=== PATIENT | female | born 1960 | race Caucasian/White ===

== ENCOUNTER 2017-01-26 17:52 | Emergency (ER) | payer OTHER ==
[~2017-01-26] VITALS: Ht 170.2 cm; Wt 102.1 kg
[~2017-01-26 17:52] MED LIST: ANAPROX DS1 TAB PO; ASPIRIN LOW DOS81 MG PO; ATIVAN1 MG PO; ATORVASTATIN CA20 MG PO; BUFFERIN LOW DO81 MG PO; CLEOCIN HCL300 MG PO; CONSTULOSE10 GM/15 M PO; CORTEF5 MG PO; Ecotrin PO; FOLIC ACID 1 MG PO; GABAPENTIN100 MG PO; HYDROCORTISONE5 MG PO; K-DUR 20MEQ TA20 MEQ PO; KLOR-CON20 MEQ PO; LACTULOSE10 GM/15 M PO; LIDODERM 5% PAT1 PAT TOP; LIPITOR20 MG PO; MOBIC 15MG15 MG PO; MULTIVITAMIN1 TA1 PO; MULTIVITAMIN1 TAB PO; NEURONTIN100 MG PO; NEURONTIN300 MG PO; OMEPRAZOLE40 MG PO; TRAMADOL50 MG PO; ULTRAM(MONOGRAP50 MG PO; VITAB121000 PO; VITAMIN B-150 MG PO; VITAMIN B1100 MG PO; ZOFRAN 4 MG TABL4 MG PO; [UNRECOGNIZED DRUG - CODE] PO
--- NOTE | 2017-01-26 19:52 | ED GENERAL ADULT ---
History of Present Illness General Chief Complaint: General Adult Stated Complaint: NEEDS DETOX ETOH HAS PAIN IN HIP AND SHOULDER Source: patient, old records Exam Limitations: intoxication Vital Signs & Intake/Output Vital Signs & Intake/Output Vital Signs Date Time Temp Pulse Resp B/P Pulse O2 O2 Flow FiO2 Ox Delivery Rate 01/27 0538 82 20 114/83 01/27 0535 82 20 114/83 96 Room Air 01/27 0259 98.0 87 20 122/60 01/27 0258 98.0 87 20 122/60 96 Room Air 01/26 2345 97.2 81 22 133/70 97 Room Air 01/26 1810 97.1 86 99 129/83 99 Room Air ED Intake and Output 01/27 0000 01/26 1200 Intake Total Output Total Balance Patient 225 lb Weight Allergies Coded Allergies: Penicillins (Mild, RASH 01/14/16) Sulfa (Sulfonamide Antibiotics) (Mild, RASH 01/14/16) amoxicillin (Mild, RASH 01/14/16) latex (Mild, RASH 01/14/16) Reconcile Medications Aspirin (Children's Aspirin) 81 MG TAB 1 TAB PO DAILY HEART (Reported) Atorvastatin (Atorvastatin Calcium) 20 MG TAB 20 MG PO 1700 CHOLESTROL ( Reported) Folic Acid 1 MG TAB 1 MG PO DAILY Supplement Gabapentin (Neurontin) 300 MG CAP 1 CAP PO TID NEUROPATHY (Reported) Hydrocortisone 5 MG TAB 3 TAB PO DAILY AC ADRENAL INSUFFICIENCY (Reported) Hydrocortisone 5 MG TAB 1 TAB PO 1700 ADRENAL INSUFFICIENCY (Reported) Multivitamin (Multiple Vitamins) 1 TAB TAB 1 TAB PO DAILY VITAMIN POTASSIUM CHLORIDE (K-Dur) 20 MEQ TAB 1 TAB PO DAILY SUPPLEMENT (Reported) Thiamine (Vitamin B-1) 50 MG TAB 1 TAB PO DAILY SUPPLEMENT Tramadol HCl (Ultram) 50 MG TAB 1 TAB PO BID PAIN (Reported) Triage Note: C/O PAIN AND SWELLING TO BOTH FEET, BACK. ALSO STATES SHE HAS BEEN DRINKING VODKA FOR 4 DAYS. HAS BEEN TO [facility] FOR BACK PROBLEMS, STATES SHE IS UPSET THAT "THEY WON'T DO SURGERY. HAS HX OF NEUROPATHY. Triage Nurses Notes Reviewed? yes Onset: Abrupt Duration: hour(s): (FEW) Timing: single episode today Injury Environment: home Severity: moderate No Modifying Factors: none Associated Symptoms: CHRONIC PAIN, ALCOHOLISM HPI: 56 year old female presents intoxicated, brougt in by brother. She states she needs to get back to [facility] for her rehab. She has neuropathy and was there for 3 months. After that she was transferred to [facility] where they were unable to do surgery on her. After that she was sent home and then states she started drinking again. No SI/HI. Brother reported to charge nurse he can't take her home because she was too intoxicated to walk on her own. She admits to drinking 1 bottle of vodka today. She states "please get me back into that rehab". (RACQUEL LIU,NATHAN) Past History Travel History Traveled to [place] past 21 day No Medical History Any Pertinent Medical History? see below for history Neurological: peripheral neuropathy, seizure, AVM BRAIN SURGERY- left craniotomy 1994 with resolved right deficit. EENT: NONE Cardiovascular: NONE Respiratory: NONE Gastrointestinal: peptic ulcer disease Hepatic: intermittent abnormal LFTs/EtOH abuse. Renal: NONE Musculoskeletal: chronic back pain, disk herniation (as per MRI), RESTLESS LEG SYNDROME Psychiatric: alcohol dependence, cocaine use. Endocrine: adrenal insufficiency Blood Disorders: NONE Cancer(s): ovarian cancer, "? 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 FATHER (?prostate Ca.). Age 87. Relation not specified for: No pertinent family history Hx Contributory? No (RACQUEL LIU,NATHAN) Review of Systems Review of Systems Constitutional: Denies: chills, fever. EENTM: Reports: no symptoms. Respiratory: Denies: cough. Cardiovascular: Denies: chest pain. GI: Denies: abdominal pain, diarrhea, nausea, vomiting. Genitourinary: Reports: no symptoms. Musculoskeletal: Reports: back pain, muscle pain, muscle stiffness. Denies: neck pain. Skin: Reports: no symptoms. Neurological/Psychological: Reports: depressed. Hematologic/Endocrine: Denies: bruising, bleeding, polyuria, polydipsia. Immunologic/Allergic: Denies: splenectomy. All Other Systems: Reviewed and Negative (NATHAN EDEN MD) Physical Exam Physical Exam General Appearance: well developed/nourished, alert, awake, anxious, mild distress, intoxicated, obese Head: atraumatic, normal appearance Eyes: Bilateral: normal appearance, PERRL, EOMI. Ears, Nose, Throat: normal pharynx, normal ENT inspection Neck: normal inspection, supple, full range of motion Respiratory: normal breath sounds, chest non-tender, no respiratory distress Cardiovascular: regular rate/rhythm Peripheral Pulses: 2+ radial (R), 2+ radial (L) Gastrointestinal: normal bowel sounds, soft, non-tender Extremities: normal inspection, normal range of motion, no edema Neurologic/Psych: no motor/sensory deficits, awake, alert, oriented x 3 Skin: intact, normal color, warm/dry Core Measures ACS in differential dx? No CVA/TIA Diagnosis: No Severe Sepsis Present: No Septic Shock Present: No (NATHAN EDEN MD) Progress Differential Diagnoses I considered the following diagnoses in my evaluation of the patient: [ALCOHOL ABUSE, DRUG ABUSE, NEUROPATHY, CHRONIC BACK PAIN] Plan of Care: Orders Procedure Date/time Status Heart Healthy Diet 01/27 B Active CIWA 01/26 2312 Active LACTIC ACID 01/26 2305 Complete URINE DRUGS OF ABUSE 01/26 2005 Complete MAGNESIUM 01/26 2005 Complete LIPASE 01/26 2005 Complete LACTIC ACID 01/26 2005 Complete ETHANOL 01/26 2005 Complete COMPREHENSIVE METABOLIC PANEL 01/26 2005 Complete CBC WITHOUT DIFFERENTIAL 01/26 2005 Complete Current Medications Sig/Liane Start time Last Medication Dose Stop Time Status Admin Albuterol Sulfate 3 ML ONCE ONE 01/27 0215 CAN (Proventil) 01/27 0216 Laboratory Tests 01/27/17 0130: Lactic Acid 2.0 01/26/17 2255: Urine Opiates Screen < 100.00, Methadone Screen < 40, Barbiturate Screen < 60, Ur Phencyclidine Scrn < 6.00, Amphetamines Screen < 100, U Benzodiazepines Scrn > 800 H, Urine Cocaine Screen > 1000 H, Urine Cannabis Screen < 5.00 01/26/17 2037: Anion Gap 12, Estimated GFR > 60, BUN/Creatinine Ratio 12.0, Glucose 98, Lactic Acid 3.2 H, Calcium 8.7, Magnesium 1.6, Total Bilirubin 0.4, AST 145 H, ALT 85 H, Alkaline Phosphatase 138 H, Total Protein 5.8 L, Albumin 3.3 L, Globulin 2.5, Albumin/Globulin Ratio 1.3, Lipase 112, CBC w Diff NO MAN DIFF REQ, RBC 3.91 L, MCV 98.7, MCH 33.0 H, RDW 16.1 H, MPV 7.6, Gran % 32.4 L, Lymphocytes % 54.8 H, Monocytes % 9.7 H, Eosinophils % 1.7, Basophils % 1.4, Absolute Granulocytes 1.5, Absolute Lymphocytes 2.5, Absolute Monocytes 0.4, Absolute Eosinophils 0.1, Absolute Basophils 0.1, PUBS MCHC 33.5, Serum Alcohol 258.0 Initial ED EKG: none Hand-Off Endorsed To: SCOTT ARIAS MD Endorsed Time: 0700 Pending: other (SOBRIETY,REEVALUATION) (NATHAN EDEN MD) Differential Diagnoses I considered the following diagnoses in my evaluation of the patient: Comments: 01/27/2017 8:00:44 AM patient signed out to me by Dr. Eden recovery agent. Patient 's most recent CIWA score was only 3. There appears to be no significant acute alcohol withdrawal at this time. 01/27/2017 8:15:44 AM I have updated Eboni on her test results. She appears clinically sober this morning. She will call her father for a ride to [facility] for rehabilitation of chronic back pain and shoulder pain. She states that this has already been cleared [facility] and authorized by her insurance company. (SCOTT ARIAS MD) Departure Departure Condition: Stable Referrals: MARCO A MENDEZ MD (PCP/Family) Departure Forms: Customer Survey General Discharge Information (NATHAN EDEN MD) Departure Disposition: HOME OR SELF CARE Clinical Impression Primary Impression: Chronic back pain Qualifiers: Back pain location: back pain in unspecified location Back pain laterality: unspecified Qualified Codes: M54.9 - Dorsalgia, unspecified; G89.29 - Other chronic pain Secondary Impressions: Benzodiazepine abuse, Cocaine abuse, Intoxication Additional Instructions: FOLLOW UP WITH THE LIST OF OUTPATIENT DETOX FACILITIES. Follow-up with your primary care physician next week as scheduled for general medical evaluation. Contact [facility] regarding admission for rehabilitation. Return if any concerns or sudden worsening. Please note that there might be incidental findings in your evaluation that are unrelated to the current emergency department visit. Please notify your primary care doctor about this emergency department visit in order to obtain and review all of the testing performed so that these incidental findings can be monitored as needed. If you had an x-ray performed, please understand that some fractures may not be seen on the initial set of x-rays. If your symptoms persist you might need a repeat set of x-rays to check for such a fracture. If you had a laceration evaluated, please understand that foreign bodies such as glass or wood may not be visible to the naked eye or on plain x-rays. If the wound becomes red, swollen, increasingly more painful or if there is any drainage from the wound, please have it reevaluated by a physician for the possibility of a retained foreign body. Thank you for choosing the [facility] Emergency Department for your care. It was a pleasure to serve you today. Scott Arias M.D. [facility] (YULI LIU,SCOTT Hallman) Critical Care Note Critical Care Note Critical Care Time: non-applicable (RACQUEL LIU,NATHAN)
[2017-01-26 20:44] LABS: ABSOLUTE BASOPHIL COUNT 0.1 /CUMM (0.0-0.2); ABSOLUTE EOSINOPHIL COUNT 0.1 /CUMM (0.0-0.7); ABSOLUTE GRANULOCYTE CT 1.5 /CUMM (1.4-6.5); ABSOLUTE LYMPH COUNT 2.5 /CUMM (1.2-3.4); ABSOLUTE MONOCYTE COUNT 0.4 /CUMM (0.10-0.60); BASOPHIL % 1.4 % (0.0-2.0); EOSINOPHIL % 1.7 % (0-5); GRANULOCYTE % 32.4 % (42.2-75.2); HEMATOCRIT 38.6 % (37-47); MEAN CORPUSCULAR HGB CONC 33.5 G/DL (33.0-37.0); MEAN CORPUSCULAR VOLUME 98.7 FL (81.0-99.0); MEAN PLATELET VOLUME 7.6 FL (7.4-10.4); PLATELET COUNT 200 /CUMM (130-400); RBC DISTRIBUTION WIDTH 16.1 % (11.5-14.5); RED BLOOD CELL CT 3.91 /CUMM (4.20-5.40); WHITE BLOOD CELL COUNT 4.5 /CUMM (4.8-10.8)
[2017-01-27 09:12] VITALS: BP 118/72
== END 2017-01-27 09:24 ==
LOC: ERH 17:52
PROVIDERS: Emergency Medicine
DX: G89.29 Other chronic pain (principal); M54.9 Dorsalgia, unspecified; F13.10 Sedative, hypnotic or anxiolytic abuse, uncomplicated; F14.10 Cocaine abuse, uncomplicated; F10.129 Alcohol abuse with intoxication, unspecified
CPT/HCPCS: 80307; 96361; 96374; 99291; G0480; J2405; J2550; J2765

== ENCOUNTER 2017-11-16 14:47 | Inpatient (IN) | payer OTHER ==
[~2017-11-16] VITALS: Ht 170.2 cm; Wt 99.8 kg
[~2017-11-16 14:47] MED LIST changes: +ATORVASTATIN CA20 M1 PO; -BUFFERIN LOW DO81 MG PO; +CHILDREN'S ASPI81 M1 PO; +FOLIC ACID1 M1 PO; +GABAPENTIN600 M1 PO; +LIDODERM1 EACH TOP; -LIPITOR20 MG PO; +MULTI-DAY PLUS1 EAC1 PO; +NEURONTIN300 M1 PO; +OLANZAPINE5 M2 PO; +OMEPRAZOLE40 M1 PO; -ULTRAM(MONOGRAP50 MG PO; +ULTRAM50 M1 PO; +VITAMIN B-150 M1 PO
--- NOTE | 2017-11-16 15:30 | ED GI/GU/ABDOMINAL COMPLAINT ---
History of Present Illness General Chief Complaint: General Adult Stated Complaint: UNABLE TO HOLD FOOD DOWN, +VOMITING Source: patient, old records Exam Limitations: poor historian Vital Signs & Intake/Output Vital Signs & Intake/Output Vital Signs Date Time Temp Pulse Resp B/P B/P Pulse O2 O2 Flow FiO2 Mean Ox Delivery Rate 11/16 1708 96.9 90 20 147/64 98 Room Air 11/16 1454 97.9 105 20 122/76 94 Room Air Allergies Coded Allergies: Penicillins (Mild, RASH 01/14/16) Sulfa (Sulfonamide Antibiotics) (Mild, RASH 01/14/16) amoxicillin (Mild, RASH 01/14/16) latex (Mild, RASH 01/14/16) hydrocortisone (LOST LEFT EYE 06/30/17) Reconcile Medications Aspirin (Children's Aspirin) 81 MG TAB.CHEW 1 TAB PO DAILY HEART/BLOOD ( Reported) Atorvastatin Calcium 20 MG TABLET 1 TAB PO DAILY CHOLESTEROL (Reported) Folic Acid 1 MG TABLET 1 TAB PO DAILY SUPPLEMENT (Reported) Gabapentin (Neurontin) 300 MG CAPSULE 1 CAP PO QAM NERVE PAIN (Reported) Gabapentin 600 MG TABLET 1,200 MG PO QPM NERVE PAIN (Reported) Lidocaine (Lidoderm) 5 % ADH..PATCH 1 PAT TOP DAILY PAIN (Reported) may wear up to 12 hours Multivitamin-Min/Iron/FA/Vit K (Multi-Day Plus Minerals Tablet) 18 MG IRON-400 MCG-25 MCG TABLET 1 TAB PO DAILY SUPPLEMENT (Reported) Olanzapine 5 MG TABLET 1 TAB PO AT BEDTIME Hallucination . Omeprazole 40 MG CAPSULE.DR 1 CAP PO DAILY ALCOHOL GASTRITIS . Thiamine HCl (Vitamin B-1) 50 MG TABLET 1 TAB PO DAILY SUPPLEMENT (Reported) Tramadol HCl (Ultram) 50 MG TABLET 1 TAB PO BID PAIN (Reported) Triage Note: LEFT SIDED ABDOMINAL PAIN SINCE . PT STATES N/V WITH "BIG,HUGE BOWEL MOVEMENTS" PT IS POOR HISTORIAN, STATES SHE HASN'T EATEN SINCE AND WAS SUPPOSED TO HAVE ABDOMINAL SURGERY BUT DOESN'T KNOW THE NAME OF IT Triage Nurses Notes Reviewed? yes ? N Is pt currently ? No Onset: Gradual Timing: recent history Quality/Severity: cramping, sharpness Location: generalized abdomen Radiation: no radiation Activities at Onset: none Prior Abdominal Problems: similar symptoms Past Sexual History: Unobtainable at this time Modifying Factors: Worsens With: eating. Associated Symptoms: nausea/vomiting HPI: Patient is a 57-year-old female with history of chronic alcohol abuse, hypertension, fatty liver and pancreatitis presenting to the emergency department with chief complaint of nausea and vomiting has been worsening over the past 5 days but initially started approximately one month ago after Thanksgiving. She does admit to fevers and chills. No chest pain palpitations or shortness of breath. She's been drinking 1 L of vodka daily, last drink was just prior to arrival. She also sniffs cocaine 2-3 times a week. The last time she did that was about 3 days ago. Unable to tolerate anything by mouth. Denies diarrhea. Denies any blood in the vomit. Patient also reports that she' s noticed yellowing in her eyes. (Matilde Youssef) Past History Travel History Traveled to [place] past 21 day No Medical History Any Pertinent Medical History? see below for history Neurological: peripheral neuropathy, seizure, AVM BRAIN SURGERY- left craniotomy 1994 with resolved right deficit. EENT: NONE Cardiovascular: NONE Respiratory: NONE Gastrointestinal: peptic ulcer disease Hepatic: intermittent abnormal LFTs/EtOH abuse. Renal: NONE Musculoskeletal: chronic back pain, disk herniation (as per MRI), RESTLESS LEG SYNDROME Psychiatric: alcohol dependence, cocaine use. Endocrine: adrenal insufficiency Blood Disorders: NONE Cancer(s): ovarian cancer, "? 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 FATHER (?prostate Ca.). Age 87. Relation not specified for: No pertinent family history Hx Contributory? No (Matilde Yosusef) Review of Systems Review of Systems Constitutional: Reports: chills, weakness. Comments Review of systems: See HPI, All other systems negative. Constitutional, no weight loss HEENT: No visual changes no sore throat no congestion Cardiovascular: No chest pain ,palpitation , orthopnea or ankle swelling Skin, no jaundice no rashes Respiratory: No dyspnea cough sputum or hemoptysis GI: NO DIARRHEA : No dysuria No hematuria Muscle skeletal: no back pain, no neck pain, Neurologic: No numbness no confusion Psych: No stress anxiety or depression,. Heme/endocrine: No bruising no bleeding no polyuria or polydipsia Immunology: No splenectomy or history of AIDS (Matilde Youssef) Physical Exam Physical Exam General Appearance: alert, awake, mild distress Gastrointestinal: normal bowel sounds, soft, tenderness Comments: OBSESE person in no acute distress HEENT: extraocular motion intact, MILD HORIZONTAL nystagmus. Pupils equally round and reactive to light and accommodation. Nose is atraumatic. External auditory canal and Tympanic membranes clear. Pharynx normal. No swelling or edema. SCLEARAL ICTERUS PRESENT. Very dry oral mucosa. Dark red tongue. Neck: Supple, no lymphadenopathy Back: Nontender Cardiovascular: TACHY rate and rhythms no murmurs rubs or gallops, normal JVP Respiratory: Chest nontender. No respiratory distress.breath sounds clear to auscultation bilaterally Abdomen: Soft, TENDER TO PALPATION OVER LEFT UPPER QUAD AND LEFT LOWER quadrant, also tender to palpation in the epigastric region, MILDLY distended, no appreciable organomegaly, likely secondary to body habitus.. Normal bowel sounds. No ascites Extremity: No edema, no calf tenderness to palpation, normal and equal pulses. Neuro: Alert oriented x2, motor sensory normal, cranial nerves II through XII grossly intact. Skin: No appreciable rash on exposed skin, skin is warm and dry. Psych: poor memory, slurring words, appears intoxicated. Core Measures ACS in differential dx? No Sepsis Present: No Sepsis Focused Exam Completed? No (Matilde Youssef) Progress Differential Diagnosis: ELECTROLYTE ABNORMALITY, DEHYDRATION, b12 DEFICIENCY, PANCREATITIS, CHOLECYSTITIS, ACUTE HEPATITIS Plan of Care: Orders Procedure Date/time Status Nothing by Mouth 11/17 B Active Patient Data 11/16 1849 Active CIWA 11/16 1803 Active ED Holding Orders 11/16 180 Active Admit to inpatient 11/16 1802 Active Vital Signs 11/16 1802 Active Code Status 11/16 180 Active Add-on Test (ER Only) 11/16 1711 Active EKG 11/16 1706 Active Add-on Test (ER Only) 11/16 1620 Active MAGNESIUM 11/16 1620 Complete Add-on Test (ER Only) 11/16 1531 Active LIPASE 11/16 1524 Complete FOLIC ACID 11/16 1524 Complete ETHANOL 11/16 1524 Complete COMPREHENSIVE METABOLIC PANEL 11/16 1524 Complete CBC WITHOUT DIFFERENTIAL 11/16 1524 Complete VITAMIN B12 11/16 1524 Complete AMYLASE 11/16 1524 Complete Current Medications Sig/Liane Start time Last Medication Dose Stop Time Status Admin Magnesium Sulfate 1 GM ONCE ONE 11/16 1845 AC (Mag Sulfate in D5) 11/16 2244 Dextrose/Water 100 ML (D5W) Potassium Chloride 40 MEQ ONCE ONE 11/16 1815 CAN (K-Dur) 11/16 181 Laboratory Tests 11/16/17 1620: Anion Gap 24 H, Estimated GFR > 60, BUN/Creatinine Ratio 24.0, Glucose 114 H, Calcium 9.9, Magnesium 1.3 L, Total Bilirubin 2.2 H, AST 179 H, ALT 61 H, Alkaline Phosphatase 219 H, Total Protein 7.3, Albumin 4.4, Globulin 2.9, Albumin/Globulin Ratio 1.5, Amylase 135 H, Lipase 2482 H, Vitamin B12 239, Folate 3.1, CBC w Diff NO MAN DIFF REQ, RBC 4.40, MCV 93.2, MCH 31.9 H, RDW 14.9 H, MPV 9.1, Gran % 62.3, Lymphocytes % 25.6, Monocytes % 11.6 H, Eosinophils % 0.3, Basophils % 0.2, Absolute Granulocytes 3.7, Absolute Lymphocytes 1.5, Absolute Monocytes 0.7 H, Absolute Eosinophils 0, Absolute Basophils 0, PUBS MCHC 34.2, Serum Alcohol 73.0 Initial ED EKG: NSR (87 BPM) (Matilde Youssef) Departure Departure Time of Disposition: 1846 Condition: Stable Referrals: Patient Has No Primary Care Dr (PCP/Family) Departure Forms: Customer Survey General Discharge Information (Matilde Youssef) Departure Disposition: STILL A PATIENT Clinical Impression Primary Impression: Pancreatitis, acute Qualifiers: Pancreatitis type: alcohol induced Acute pancreatitis complication: unspecified Qualified Code: K85.20 - Alcohol induced acute pancreatitis without necrosis or infection Secondary Impressions: Hypokalemia Admission Note Spoke With: Lidia Christensen MD Documentation of Exam: Documentation of any treatments & extenuating circumstances including Concerns Regarding Discharge (functional status, medication knowledge or non-compliance, living conditions, etc.) that warrant an admission rather than observation: [NPO , IV FLUIDS, POTASSIUM REPLACEMENT, GI CONSULT, ANTIEMETICS, PAIN CONTROL, ] PA/EXCEL VBA DEVELOPER Co-Sign Statement Statement: ED Attending supervision documentation- [X] I saw and evaluated the patient. I have also reviewed all the pertinent lab results and diagnostic results. I agree with the findings and the plan of care as documented in the PA's/EXCEL VBA DEVELOPER's documentation. [X] I have reviewed the ED Record and agree with the PA's/EXCEL VBA DEVELOPER's documentation. [] Additions or exceptions (if any) to the PAs/EXCEL VBA DEVELOPER's note and plan are summarized below: [ALCOHOL INDUCED PANCREATITIS AND HYPOKALEMIA. MAGNESIUM PENDING, REPLEACE POTASSIUM, NPO, IV FLUIDS, PAIN CONTROL, GI CONSULTATION, ANTIEMETICS.] (Ayana LIU,Anthony Richmond)
[2017-11-16 16:49] LABS: ABSOLUTE BASOPHIL COUNT 0 /CUMM (0.0-0.2); ABSOLUTE EOSINOPHIL COUNT 0 /CUMM (0.0-0.7); ABSOLUTE GRANULOCYTE CT 3.7 /CUMM (1.4-6.5); ABSOLUTE LYMPH COUNT 1.5 /CUMM (1.2-3.4); ABSOLUTE MONOCYTE COUNT 0.7 /CUMM (0.10-0.60); BASOPHIL % 0.2 % (0.0-2.0); EOSINOPHIL % 0.3 % (0-5); MEAN CORPUSCULAR HGB 31.9 PG (27.0-31.0); MEAN CORPUSCULAR HGB CONC 34.2 G/DL (33.0-37.0); MEAN CORPUSCULAR VOLUME 93.2 FL (81.0-99.0); MEAN PLATELET VOLUME 9.1 FL (7.4-10.4); PLATELET COUNT 144 /CUMM (130-400); RBC DISTRIBUTION WIDTH 14.9 % (11.5-14.5); WHITE BLOOD CELL COUNT 5.9 /CUMM (4.8-10.8)
[2017-11-16 16:52] LABS: GRANULOCYTE % 62.3 % (42.2-75.2)
[2017-11-16 18:57] VITALS: BP 123/57
--- NOTE | 2017-11-16 20:22 | History & Physical ---
Ruperto Early MD 11/16/172020: General Information and HPI MD Statement: I have seen and personally examined ANEUDYBLAIR and documented this H&P. The patient is a 57 year old F who presented with a patient stated chief complaint of [nausea and vomitting]. 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 Patient states that she has been having abdominal pain and nausea and vomiting for the past one month. Patient states the abdominal pain is localized to the epigastric region and left side. States the pain has worsened over the past week. Describes pain as a "heartburn" type of pain. Rates the pain a 6-7 out of 10 in severity. Associated symptoms include nausea and vomitting. Patient states she has not been eating well since as she ends up vomitting most of it. States she has only been able to tolerate some liquid including ensure and soup. Patient states she feels dizzy and lightheaded and has not been able to walk due to weakness and lethargy. States she has been vomitting brown mucus. Denies any blood in vomit. Last episode of vomitting was prior to arrival in the ED. Per patient, she has had no episodes of emesis after receiving medication in the ED. Patient denies hematemesis, hematochezia or melena. Denies diarrhea or constipation. Endorses odynophagia. Denies dysphagia. Patient states that she does sometimes gag with food. Denies cough. Review of systems: Reports depression, denies suicidal or homicidal ideations, denies weight loss, night sweats, headache, visual changes, cough, shortness of breath, dysuria/hematuria, joint or muscle pain. Endorses numbness and tingling in lower extremities. Past medical history as above Past surgical history includes craniotomy, bilateral oophorectomy, cataract surgery. Family history: Mother from breast cancer in her 60s Patient states she drinks approximately 1 L of vodka for the past one year. Patient states that after her last admission on August 31 she abstained from alcohol for approximately 1 week. However states that she moved in with her brother who is a heavy drinker and states that she started to drink again. Patient states her last drink was prior to this admission. Patient states that she uses cocaine approximately 2-3 times a week. States she last used it 3 days prior to this admission. Patient states that she smokes approximately 3 cigarettes per day for the last "few years" and is quitting today. During her last admission patient was found to have calcification of the gallbladder wall. Patient was referred for outpatient surgical intervention however states that she has not seen anyone. Patient states that her primary care is Dr. Holt who she has not seen after her last admission. Allergies/Medications Allergies: Coded Allergies: Penicillins (Mild, RASH 01/14/16) Sulfa (Sulfonamide Antibiotics) (Mild, RASH 01/14/16) amoxicillin (Mild, RASH 01/14/16) latex (Mild, RASH 01/14/16) hydrocortisone (LOST LEFT EYE 06/30/17) Home Med list Aspirin (Children's Aspirin) 81 MG TAB.CHEW 1 TAB PO DAILY HEART/BLOOD ( Reported) Atorvastatin Calcium 20 MG TABLET 1 TAB PO DAILY CHOLESTEROL (Reported) Folic Acid 1 MG TABLET 1 TAB PO DAILY SUPPLEMENT (Reported) Gabapentin (Neurontin) 300 MG CAPSULE 2 CAP PO QAM NERVE PAIN (Reported) Gabapentin (Neurontin) 400 MG CAPSULE 1 CAP PO AT BEDTIME NEUROPATHY ( Reported) Lidocaine (Lidoderm) 5 % ADH..PATCH 1 PAT TOP DAILY PAIN (Reported) may wear up to 12 hours Multivitamin-Min/Iron/FA/Vit K (Multi-Day Plus Minerals Tablet) 18 MG IRON-400 MCG-25 MCG TABLET 1 TAB PO DAILY SUPPLEMENT (Reported) Olanzapine 5 MG TABLET 1 TAB PO AT BEDTIME Hallucination . Omeprazole 40 MG CAPSULE.DR 1 CAP PO DAILY ALCOHOL GASTRITIS . Thiamine HCl (Vitamin B-1) 50 MG TABLET 1 TAB PO DAILY SUPPLEMENT (Reported) Past History Travel History Traveled to [place] past 21 day No Medical History Neurological: peripheral neuropathy, seizure, AVM BRAIN SURGERY- left craniotomy 1994 with resolved right deficit. EENT: NONE Cardiovascular: NONE Respiratory: NONE Gastrointestinal: peptic ulcer disease Hepatic: intermittent abnormal LFTs/EtOH abuse. Renal: NONE Musculoskeletal: chronic back pain, disk herniation (as per MRI), RESTLESS LEG SYNDROME Psychiatric: alcohol dependence, cocaine use. Endocrine: adrenal insufficiency Blood Disorders: NONE Cancer(s): ovarian cancer, "? 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 FATHER (?prostate Ca.). Age 87. Relation not specified for: No pertinent family history Psychosocial History Who Do You Live With? child, self, brother Services at Home: None, sister prepares her meds for her Primary Language: Vietnamese ETOH Use: occasional use Illicit Drug Use: denies illicit drug use Living Will? unknown Power of Nursing Scheduler/HCP? unknown Functional Ability ADLs Independent: dressing, eating. Needs Assist: toileting, bathing. Ambulation: independent IADLs Independent: food prep. Needs Assist: shopping, housework, transportation. Unknown: finances, medication admin. Sexual History Past Sexual History Unobtainable at this time Review of Systems Review of Systems Constitutional: Reports: see HPI. Cardiovascular: Denies: no symptoms. Respiratory: Denies: no symptoms, see HPI. GI: Reports: see HPI. Genitourinary: Denies: no symptoms, see HPI. Musculoskeletal: Denies: see HPI. Neurological/Psychological: Reports: depressed. Hematologic/Endocrine: Denies: no symptoms. Exam & Diagnostic Data Last 24 Hrs of Vital Signs/I&O Vital Signs Date Time Temp Pulse Resp B/P B/P Pulse O2 O2 Flow FiO2 Mean Ox Delivery Rate 11/17 743 98.4 76 18 94/56 11/17 0743 98.4 92 18 94/56 98 Room Air 11/17 0525 97.6 57 20 119/57 11/17 0525 97.6 90 20 119/57 97 Room Air 11/17 0303 98.4 104 18 112/54 11/17 0258 98.4 104 18 112/54 97 Room Air 11/17 0102 99.8 90 18 122/56 11/17 0100 99.8 90 18 122/56 97 Room Air 11/16 2301 97.9 103 18 146/62 11/16 2301 97.9 103 16 146/62 95 Room Air 11/16 2210 96.5 99 18 135/61 11/16 2210 96.5 99 18 135/61 97 Room Air 11/16 2113 97.2 106 20 133/57 11/16 2113 97.2 106 20 133/57 95 Room Air 11/16 1857 98.6 98 18 123/57 11/16 1857 98.6 98 20 123/57 98 Room Air 11/16 1708 96.9 90 20 147/64 98 Room Air 11/16 1454 97.9 105 20 122/76 94 Room Air Intake & Output 11/17 1600 11/17 0800 11/17 0000 Intake Total 2200 Output Total 400 Balance 1800 Intake, IV 2200 Output, Urine 400 Physical Exam General Appearance Alert, Oriented X3, Cooperative, Mild Distress HEENT Atraumatic, PERRLA, EOMI, dry mucosal membranes, scleral icterus Neck No JVD Cardiovascular Regular Rate, Normal S1, Normal S2, No Murmurs Lungs Clear to Auscultation, Normal Air Movement Abdomen Normal Bowel Sounds, Soft, tender to palpation in the epigastric region, no rebound, no guarding, no rigidity Extremities No Clubbing, No Cyanosis, No Edema, Normal Pulses, No Tenderness/ Swelling Vascular Normal Pulses, Pulses Symmetrical Last 24 Hrs of Labs/Nicholas: Laboratory Tests 11/17/17 0538: Troponin I < 0.01 11/17/17 0117: PT 12.3, INR 1.17 11/16/17 2200: Troponin I Cancelled, Urine Opiates Screen < 100.00, Methadone Screen < 40, Barbiturate Screen < 60, Ur Phencyclidine Scrn < 6.00, Amphetamines Screen < 100 , U Benzodiazepines Scrn > 800 H, Urine Cocaine Screen > 1000 H, Urine Cannabis Screen < 5.00 11/16/17 2105: Anion Gap 12, Estimated GFR > 60, BUN/Creatinine Ratio 27.5 H, Troponin I < 0.01 11/16/17 1620: Anion Gap 24 H, Estimated GFR > 60, BUN/Creatinine Ratio 24.0, Glucose 114 H, Calcium 9.9, Magnesium 1.3 L, Total Bilirubin 2.2 H, Direct Bilirubin 1.7 H, AST 179 H, ALT 61 H, Alkaline Phosphatase 219 H, Total Protein 7.3, Albumin 4.4, Globulin 2.9, Albumin/Globulin Ratio 1.5, Triglycerides 191 H, Amylase 135 H, Lipase 2482 H, Vitamin B12 239, Folate 3.1, CBC w Diff NO MAN DIFF REQ, RBC 4.40, MCV 93.2, MCH 31.9 H, RDW 14.9 H, MPV 9.1, Gran % 62.3, Lymphocytes % 25.6, Monocytes % 11.6 H, Eosinophils % 0.3, Basophils % 0.2, Absolute Granulocytes 3.7, Absolute Lymphocytes 1.5, Absolute Monocytes 0.7 H, Absolute Eosinophils 0, Absolute Basophils 0, PUBS MCHC 34.2, Serum Alcohol 73.0 Diagnostic Data EKG Results In normal sinus rhythm HR: 89bpm, PA: 164, QRS: 102, QTC: 443, normal axis, ?T- wave inversion in V2 Assessment/Plan Assessment: Patient is a 57-year-old female with past medical history significant for alcohol abuse, pancreatitis, hyperlipidemia, with previous admission for alcohol detox presents this admission with findings consistent for pancreatitis 2/2 to alcohol abuse. Patient will be admitted to telemetry for management of the followoin. Acute on Chronic Pancreatitis 2/2 to Alcohol abuse. Patient has been drinking 1L of Vodka daily since her last admission in August. Other most common etiologies to consider include gallstones and hypertriglyceridemia. * BISAP: 0. Stable for admission to the floor. * NPO with LR 1L followed by NS @ 250 cc/hr * Advance diet as tolerated * Zofran PRN for nausea * RUQ ultrasound * Lipid panel 2. Alcohol abuse Patient has been drinking heavily with recent admission for alcohol detox. Last drink was day of admission. * Place on CIWA * Ativan 2mg PO q6h * Continue thiamine, multivitamin and folate * Social work consult in AM 3. EKG changes and electrolyte abnormalities. EKG showing Twave inversion in lead V2. Likely 2/2 to electrolyte abnormalities with hypokalemia and hypomagnesemia which are most likely 2/2 patient's alcohol abuse and poor oral intake. Also EKG changes may be due to cocaine use. However will rule out ACS. * Serial Trop and EKG * Repleted K+ and will continue to monitor * Utox 4. Transaminitis likley 2/2 to alcohol abuse. Has had a hepatitis panel done in August 2017 which was negative. * Follow up LFTs * RUQ abdominal ultrasound in AM 5. Porcelain gallbladder - Patient has not followed up with surgery as recommended during previous admission. * Consider surgical evaluation for inpatient vs outpatient management 6. GERD * Continue on omeprazole 7. Peripheral neuropathy * Continue on gabapentin 600 mg in morning and 4 mg at bedtime 8. Chronic back pain 2/2 disc herniation * Continue Lidoderm patch Diet: NPO with IV fluids DVT PPx: Heparin SC Code: Full code As Ranked By This Provider Problem List: 1. Pancreatitis, acute Qualifiers Pancreatitis type: alcohol induced Acute pancreatitis complication: unspecified Qualified Code: K85.20 - Alcohol induced acute pancreatitis without necrosis or infection Core Measures/Misc (07/31) Acute Coronary Syndrome ACS Diagnosis: No Congestive Heart Failure Congestive Heart Failure Diagnosis No Cerebrovascular Accident CVA/TIA Diagnosis: No VTE (View Protocol) VTE Risk Factors Age>40 No Mechanical VTE Prophylaxis d/t N/A MechProphylax Ordered No VTE Pharm Prophylaxis d/t NA PharmProphylax ordered Sepsis (View protocol) Sepsis Present: No Jeremy,Catie 11/16/172026: Resident Review Statement Resident Statement: examined this patient, discussed with photo intern, agreed with photo intern, discussed with family, reviewed EMR data (avail), discussed with nursing , discussed with case mgmt, reviewed images, amended to note Other Findings: 57-year-old female with a past medical history of chronic alcohol abuse, hypertension, fatty liver, pancreatitis, ovarian cancer, questionable breast cancer AV malformations requiring craniotomy, disc herniation, who presented to the ED with chief complaints of nausea, vomiting that has been worsening over the past 5 days but apparently started about a month ago after . According to the patient she was in her usual state of health until when she first started to notice epigastric pain that she describes as a heartburn as well as nausea and vomiting. Apparently her symptoms worsened and for the past for 5 days she's not been able to keep anything down. She had been taking Tums for the past 2 weeks now for her epigastric pain. Patient endorses epigastric pain that she grades as a 7 out of 10 does not radiate to her back. She also endorses bringing up brown mucus seen vomitus. Denies any hematemesis. Denies any fever, chills, any recent upper respiratory tract infections, diarrhea, constipation, however does endorse drinking a liter of vodka a day. Apparently she was discharged from [facility] back in August 2017 after which she went back to drinking since she started living with her brother. Apparently her last drink was this morning. Patient denies any chest discomfort , shortness of breath, dysuria, hematuria, however does endorse dizziness and lightheadedness and feels very dehydrated. She endorses sniffing cocaine a couple of days ago and also has been smoking 3 cigarettes a day for the past couple of years. Back in Aug 2017 she was admitted for alcohol detox. At that time she did have some focal gallbladder wall calcification (porceline GB) on CT and was provided referral to surgery as an outpatient. No need for inpatient surgical consult at this time as patient asymptomatic, but patient never folowed up. Vitals on admission blood pressure 123/57, respiratory rate of 18, pulse 98, afebrile saturating 98% on room air. On physical exam she she is alert, oriented 3 however lethargic. HEENT revealed icteric sclera, pupils bilaterally reactive to light, very dry mucous membranes. There was no cervical lymphadenopathy or elevated JVD. Auscultation of the chest did not reveal any crackles or rhonchi, cardiovascular exam pertinent for normal S1, S2, no murmurs rubs or gallops appreciated. Exam pertinent for tenderness to palpation in the epigastrium, normal bowel sounds, abdomen soft, nondistended. Examination of the lower extremities did not reveal any edema however there was fungal infection of the toe. There was no CVA tenderness. Labs pertinent for normal white blood cell count 5900, H&H of 14.4/41.1, platelet count of 1 44,000. Serum chemistries pertinent for hypertension with a sodium 134, potassium 2.8, bicarbonate of 23, anion gap elevated to 24. BUN 12 the creatinine 0.5 and a serum glucose of 114. Serum mag 1.3, total bili of 2.2 with an AST/ALT of 179/61, alkaline phosphatase of 219, serum lipase of 2482. Folate was 3.1 and B12 239. Serum alcohol 73.0 EKG revealed normal sinus rhythm with a heart rate of 90, normal axis, ? T-wave inversion in V2. Echocardiogram done in as 15 for TIA revealed stage I diastolic dysfunction with an EF of greater than 65, no aortic valve stenosis or regurgitation. In the ER, her CIWA score was 4 she received thousand mL bolus of normal saline, 40 mEq of K-Parris orally, 10 mCi: Supple ID potassium chloride, Reglan 10 mg IV 1 , Zofran 4 mg IV 1, and mag sulfate as well as lactated Ringer's. Assessment and plan Admit patient to telemetry given hypokalemia and mild EKG changes. #Pancreatitis Most likely alcoholic vs gallstone given she's been drinking a liter a day of vodka. Nothing by mouth for now given persistent nausea vomiting and inability to keep food down. Hydrate with normal saline at 250 mls/ per hour Zofran as needed for nausea BISAP score of 0 (no CXR to endure she doesnt have pleural effusion) Follow-up triglyceride level, serum calcium #Mild T-wave inversions in V2 Most likely secondary To hypokalemia and hypomagnesemia We will repeat a troponin and EKG at 10 PM #Transaminitis Most likely secondary to alcoholic hepatitis Will order PT to follow-up on Maddrey's discriminant function Follow-up LFTs in a.m. and ultrasound abdomen Of note she was negative for hepatitis back in August 2017 #Hypokalemia and hypomagnesemia Most likely secondary to alcoholism as well as dehydration and vomiting Will replete with potassium and recheck at 9 PM Follow-up BEP in a.m. #Alcohol dependence We'll start her on Ativan 2 mg every 6 scheduled and Ativan per CIWA We'll start her on thiamine, folate and a multivitamin Social work consult in a.m. We'll check a U tox #GERD Continue on omeprazole #Peripheral neuropathy Continue on gabapentin 600 mg in morning and 4 mg at bedtime #Chronic back pain secondary to disc herniation Continue Lidoderm patch #Porcine gallbladder Consider GI/GS consult in a.m. -Diet Nothing by mouth for now DVT prophylaxis Heparin 5000minutes 3 times a day subcutaneous - CODE STATUS Full code Lidia Christensen 11/17/17 0510: Attending MD Review Statement Attending Statement Attending MD Statement: examined this patient, discuss w/resident/PA/PANEL FLOW MACHINE OPERATOR, agreed w/resident/PA/PANEL FLOW MACHINE OPERATOR, reviewed EMR data (avail), reviewed images, amended to note Attending Assessment/Plan: CC: Left sided abdominal pain PMH: Alcoholism, recurrent pancreatitis, peripheral neuropathy, adrenal insufficiency, HLD, history of AV malformations S/P craniotomy, disc herniation, chronic back pain, history of cocaine use, ?Sz Patient came to ER for persistent abdominal pain, mostly in epigastric region going to left side, 7/10 in intensity, associated with heartburn, nausea and vomiting. Patient has been noticing worsening of pain since Thanksgiving but symptoms worsened more in last few days. Denies any blood in the bowel or vomitus. No black colored stool. Endorses poor appetite. Endorses heavy alcohol drinking and last use of cocaine was couple of days back. Current smoker. Vitals: Afebrile, pulse 105, RR 20, blood pressure 122/76, saturating 94% on room air. On exam: A O 3, cooperative, no acute distress, neck supple, JVD normal, no lymphadenopathy, mucosa dry, no focal neurological deficit, no dependent edema, no obvious skin rashes or inflammation CVS: S1-S2, RRR. RS: Clear to auscultate bilaterally. Abdomen: Soft, tender, no guarding or rigidity, ND, bowel sounds present. Labs: CBC unremarkable, sodium 134, potassium 2.8, chloride 87, bicarbonate 23, BUN 12, creatinine 0.5, an anion gap 24, glucose 114, calcium 9.9, total bilirubin 2.2, AST 179, ALT 61, alkaline phosphatase 219, magnesium 1.3, lipase 2482, Alcohol 73 ECG: ? T-wave changes in V2 Assessment and plan 57-year-old female with significant history of alcoholism and recurrent pancreatitis presented in ER for abdominal pain which started around Thanksgiving (one month back) now worsening since last few days associated with heartburn, nausea, vomiting, decreased by mouth intake. Endorses current use of alcohol, cocaine. On examination patient appears dehydrated, mild epigastric tenderness, no Barry sign, no CVA tenderness, peripheral pulses and perfusion normal, lung clear to auscultate. Patient's lipase was elevated to 2482. As given her recurrent pancreatitis history this appears to be another episode secondary to alcoholism. She is also found to have significant hypokalemia, hypomagnesemia and mild transaminitis with mildly elevated bilirubin all probably secondary to alcoholism. INR 1.17. In her recent hospitalization in August 2017, patient was found to have punctate calcification of the gallbladder wall in the gallbladder fundus. Patient was suggested to follow-up outpatient for the same for surgery but patient did not do so and even could not recall that she was informed about the same. "I was told to get some surgery not sure what". + Acute pancreatitis + Hypokalemia + Hypomagnesemia + Mild transaminitis + alcoholism watch for DTs + ? T-wave changes with "heartburn", history of cocaine, U tox positive for cocaine + History of peripheral neuropathy, adrenal insufficiency, HLD, history of AV malformations S/P craniotomy, disc herniation, chronic back pain, I could not confirm seizure history and patient does not appear to be on any antiseizure medication - Admit to telemetry - Continuous telemetry monitoring - 1 more set of troponin and EKG - Replete potassium - Replete magnesium - Aggressive hydration 200 mL per hour of lactated Ringer or normal saline for 1.5 L - Lipid profile, right upper quadrant ultrasound - Scheduled Ativan 1 mg every 6 to 8 hour, when necessary IV Ativan according to [facility] protocol - Replete thiamine, folic acid, B12 - Patient can be downgraded to telemetry if no further EKG changes, troponin and potassium normal. - Protonix 40 mg by mouth daily - DVT prophylaxis - Adequate pain control - Outpatient follow up for gallbladder surgery
[2017-11-16 21:13] VITALS: BP 133/57
[2017-11-16] MEDS ORDERED: NEURONTIN400 M1 PO (21:23)
[2017-11-16 22:10] VITALS: BP 135/61
[2017-11-16 23:01] VITALS: BP 146/62
[2017-11-17] VITALS (9 sets, daily range): BP systolic 94–122; BP diastolic 54–61
[2017-11-17 01:37] LABS: PT 12.3 SEC (9.4-12.5)
--- NOTE | 2017-11-17 05:12 | Admission Certification ---
Admission Certification Certification Statement - As attending physician, I certify that at the time of - admission, based on clinical presentation, severity of - symptoms, need for further diagnostic testing and - therapeutic interventions, and risk of adverse outcomes - without in-hospital treatment, in my clinical assessment, - this patient requires an acute hospital stay for a minimum - of two nights or longer. I have also considered psychsocial - factors such as support system, advanced age, financial - issues, cognitive issues, and failed out-patient treatments, - past re-admission history, safety of patient, and lack of - compliance as applicable. Specific rationale supporting this admission is: acute pancreatitis, hypokalemia, hypomagnesemia, transaminitis, alcoholism
--- NOTE | 2017-11-17 07:54 | PN- Housestaff ---
Elver LIU,Magali 11/17/17 0754: Subjective Follow-up For: Acute on chronic pancreatitis; alcohol-induced Tele-Events Since Last Visit: no acute events Review of Systems Constitutional: Reports: see HPI. Objective Last 24 Hrs of Vital Signs/I&O Vital Signs Date Time Temp Pulse Resp B/P B/P Pulse O2 O2 Flow FiO2 Mean Ox Delivery Rate 11/17 1558 98.0 85 18 96/53 97 Room Air 11/17 1440 98.4 84 18 105/55 11/17 1439 98.4 85 18 105/55 98 Room Air 11/17 1227 98.4 76 18 99/61 / 1134 98.2 76 18 99/61 98 Room Air 11/17 0810 98.4 76 18 94/56 / 0744 98.4 76 18 94/56 / 0744 98.4 76 18 94/56 98 Room Air 11/17 0743 98.4 92 18 94/56 98 Room Air 11/17 0525 97.6 57 20 119/57 /04 0525 97.6 90 20 119/57 97 Room Air 11/17 0303 98.4 104 18 112/54 /04 0258 98.4 104 18 112/54 97 Room Air / 0102 99.8 90 18 122/56 /04 0100 99.8 90 18 122/56 97 Room Air / 2301 97.9 103 18 146/62 /03 2301 97.9 103 16 146/62 95 Room Air 11/16 2210 96.5 99 18 135/61 / 2210 96.5 99 18 135/61 97 Room Air 11/16 2113 97.2 106 20 133/57 / 2113 97.2 106 20 133/57 95 Room Air 11/16 1857 98.6 98 18 123/57 / 1857 98.6 98 20 123/57 98 Room Air 11/16 1708 96.9 90 20 147/64 98 Room Air Intake & Output 11/17 1600 11/17 0800 11/17 0000 Intake Total 2200 Output Total 400 Balance 1800 Intake, IV 2200 Output, Urine 400 Patient 220 lb Weight Weight Reported by Patient Measurement Method Physical Exam General Appearance: Alert, Oriented X3 Lungs: Clear to Auscultation Abdomen: Normal Bowel Sounds, mild epigastric tenderness Neurological: Normal Speech Current Medications: Current Medications Sig/Liane Start time Last Medication Dose Route Stop Time Status Admin Aspirin 81 MG DAILY 11/17 1000 AC 11/17 PO 1021 Folic Acid 1 MG DAILY 11/17 1000 AC 11/17 PO 1021 Gabapentin 600 MG QAM 11/17 1000 AC 11/17 PO 1021 Gabapentin 400 MG AT BEDTIME 11/16 2200 AC 11/16 PO 2157 Heparin Sodium 5,000 UNIT Q8 11/16 2200 AC 11/17 (Porcine) SC 0655 Heparin Sodium 0 .STK-MED ONE 11/16 211 DC (Porcine) .ROUTE Ibuprofen 0 .STK-MED ONE 11/17 1428 DC PO Ibuprofen 400 MG TID PRN 11/17 1415 AC 11/17 PO 1426 Lactated Ringer's 1,000 ML .Q5H 11/16 1945 DC 11/16 IV 11/17 0044 1955 Lidocaine 1 PAT DAILY 11/17 1000 AC 11/17 EXT 1021 Lorazepam 0 .STK-MED ONE 11/17 0301 DC PO Lorazepam 0 .STK-MED ONE 11/16 2211 DC .ROUTE Lorazepam 2 MG Q6 11/16 2115 AC 11/17 PO 0306 Lorazepam 0 .STK-MED ONE 11/16 211 DC PO Lorazepam 0 .STK-MED ONE 11/16 211 DC .ROUTE Lorazepam 0 Q1P PRN 11/16 2045 AC 11/16 IV 2210 Magnesium Sulfate 1 GM ONCE ONE 11/17 1045 DC 11/17 Dextrose/Water 100 ML IV 11/17 1444 1055 Magnesium Sulfate 1 GM ONCE ONE 11/16 1845 DC 11/16 Dextrose/Water 100 ML IV 11/16 2244 1908 Metoclopramide HCl 0 .STK-MED ONE 11/16 1817 DC .ROUTE Metoclopramide HCl 10 MG ONCE ONE 11/16 1815 DC 11/16 IV 11/16 1816 1817 Multivitamins 1 TAB DAILY 11/16 2125 AC 11/17 PO 1021 Nicotine 7 MG DAILY 11/17 1000 AC TOP Olanzapine 5 MG AT BEDTIME 11/16 2200 AC 11/16 PO 2157 Omeprazole 40 MG DAILY AC 11/17 0700 AC 11/17 PO 0655 Ondansetron HCl 0 .STK-MED ONE 11/17 0715 DC .ROUTE Ondansetron HCl 0 .STK-MED ONE 11/16 2309 DC .ROUTE Ondansetron HCl 4 MG Q6P PRN 11/16 2130 AC 11/17 IV 0715 Ondansetron HCl 0 .STK-MED ONE 11/16 1627 DC .ROUTE Ondansetron HCl 4 MG ONCE ONE 11/16 1615 DC 11/16 IV 11/16 1616 1625 Potassium Chloride 0 .STK-MED ONE 11/17 1048 DC PO Potassium Chloride 40 MEQ ONCE ONE 11/17 1045 CAN PO 11/17 1046 Potassium Chloride 40 MEQ ONCE ONE 11/17 1045 DC 11/17 PO 11/17 1046 1046 Potassium Chloride 0 .STK-MED ONE 11/16 1818 DC PO Potassium Chloride 40 MEQ ONCE ONE 11/16 1815 CAN PO 11/16 1816 Potassium Chloride 40 MEQ ONCE ONE 11/16 1815 DC 11/16 PO 11/16 1816 1817 Potassium Chloride 10 MEQ ONCE ONE 11/16 1730 DC 11/16 IV 11/16 1731 1735 Potassium Phosphate 15 mMol ONE ONE 11/17 1030 DC 11/17 Sodium Chloride 250 ML IV 11/17 1434 1224 Sodium Chloride 1,000 ML Q6H 11/16 2045 AC 11/17 IV 11/18 0244 0741 Sodium Chloride 1,000 ML BOLUS ONE 11/16 1615 DC 11/16 IV 11/16 1714 1625 Thiamine HCl 50 MG DAILY 11/17 1000 AC 11/17 PO 1021 Last 24 Hrs of Lab/Nicholas Results Last 24 Hrs of Labs/Mics: Laboratory Tests 11/17/17 0858: Anion Gap 11, Estimated GFR > 60, BUN/Creatinine Ratio 25.0, Phosphorus 0.6 *L, Total Bilirubin 1.5 H, Direct Bilirubin 1.2 H, AST 135 H, ALT 49, Alkaline Phosphatase 148 H, Total Protein 5.1 L, Albumin 2.7 L, CBC w Diff NO MAN DIFF REQ, RBC 3.26 L, MCV 93.0, MCH 32.0 H, RDW 14.4, MPV 8.7, Gran % 56.4, Lymphocytes % 29.4, Monocytes % 13.0 H, Eosinophils % 0.6, Basophils % 0.6, Absolute Granulocytes 2.3, Absolute Lymphocytes 1.2, Absolute Monocytes 0.5, Absolute Eosinophils 0, Absolute Basophils 0, PUBS MCHC 34.4 11/17/17 0538: Magnesium 1.6, Troponin I < 0.01 11/17/17 0117: PT 12.3, INR 1.17 11/16/17 2200: Troponin I Cancelled, Urine Opiates Screen < 100.00, Methadone Screen < 40, Barbiturate Screen < 60, Ur Phencyclidine Scrn < 6.00, Amphetamines Screen < 100 , U Benzodiazepines Scrn > 800 H, Urine Cocaine Screen > 1000 H, Urine Cannabis Screen < 5.00 11/16/17 2105: Anion Gap 12, Estimated GFR > 60, BUN/Creatinine Ratio 27.5 H, Troponin I < 0.01 11/16/17 1620: Anion Gap 24 H, Estimated GFR > 60, BUN/Creatinine Ratio 24.0, Glucose 114 H, Calcium 9.9, Magnesium 1.3 L, Total Bilirubin 2.2 H, Direct Bilirubin 1.7 H, AST 179 H, ALT 61 H, Alkaline Phosphatase 219 H, Total Protein 7.3, Albumin 4.4, Globulin 2.9, Albumin/Globulin Ratio 1.5, Triglycerides 191 H, Amylase 135 H, Lipase 2482 H, Vitamin B12 239, Folate 3.1, CBC w Diff NO MAN DIFF REQ, RBC 4.40, MCV 93.2, MCH 31.9 H, RDW 14.9 H, MPV 9.1, Gran % 62.3, Lymphocytes % 25.6, Monocytes % 11.6 H, Eosinophils % 0.3, Basophils % 0.2, Absolute Granulocytes 3.7, Absolute Lymphocytes 1.5, Absolute Monocytes 0.7 H, Absolute Eosinophils 0, Absolute Basophils 0, PUBS MCHC 34.2, Serum Alcohol 73.0 Assessment/Plan Assessment: Patient is a 57-year-old female with past medical history significant for alcohol abuse, pancreatitis, hyperlipidemia, with previous admission for alcohol detox presents this admission with findings consistent for pancreatitis 2/2 to alcohol abuse. Patient is being managed on telemetry for following conditions #Pancreatitis Most likely alcoholic vs gallstone given she's been drinking a liter a day of vodka. * Continue IV hydration for her acute pancreatitis * Zofran as needed for nausea * BISAP score of 0 (no CXR to endure she doesnt have pleural effusion) * triglyceride level 191, serum calcium 9.9 WNL #Transaminitis Most likely secondary to alcoholic hepatitis,Of note she was negative for hepatitis back in August 2017; Maddrey's discriminant function good prognosis. RUQ Hepatic steatosis. * Monitor LFT's #Hypokalemia and hypomagnesemia Most likely secondary to alcoholism as well as dehydration and vomiting * Replete aggressively * Follow-up BEP #Alcohol dependence CIWA running low max 9 * Ativan 2 mg every 6 scheduled and Ativan per CIWA * thiamine, folate and a multivitamin * Social work consult in a.m. #ECG: ? T-wave changes in V2 just one lead * Cardiology consult pending with Dr. Kiser #GERD Continue on omeprazole #Peripheral neuropathy Continue on gabapentin 600 mg in morning and 4 mg at bedtime #Chronic back pain secondary to disc herniation Continue Lidoderm patch #Porcine gallbladder surgery consult in am for outot management #DietNothing by mouth for now #DVT prophylaxis Heparin 5000minutes 3 times a day subcutaneous #CODE STATUS Full code Problem List: 1. Alcoholic hepatitis Pain Ratin Pain Location: epigastric diffuse Pain Goal: Pain 4 or less Pain Plan: prn motrin Tomorrow's Labs & Rationales: cbc bep Storm LIU,Nidia 11/17/17 1339: Attending MD Review Statement Attending Statement Attending MD Statement: examined this patient, discuss w/resident/PA/GENERAL MANAGER FOOD, agreed w/resident/PA/GENERAL MANAGER FOOD, reviewed EMR data (avail), discussed with nursing, discussed with case mgmt, amended to note Attending Assessment/Plan: Patient seen and examined. Not in acute distress. Denies nausea vomiting. Complains of diffuse abdominal pain. She is currently afebrile and hemodynamically stable. On examination she is alert and oriented 3. Heart sounds are regular with no audible murmur. Lungs are clear to auscultation bilaterally. Abdomen is nondistended, soft, with diffuse tenderness, no rebound or guarding. No peripheral edema Problems: 1. Acute on chronic pancreatitis; alcohol-induced 2. Abnormal EKG; nonspecific 3. Chronic anemia 4. Hypokalemia; resolved 5. Polysubstance abuse 6. Calcified gallbladder. Plan: -Cardiac enzymes are currently negative 2. Patient denies any chest pain or palpitations.Continue telemetry monitoring overnight. If no events follow-up with the cardiology service regarding need for continued telemetry monitoring. -Continue IV hydration for her acute pancreatitis. Decrease fluids 125 cc an hour for 1 L then reevaluate volume status. Repeat serum chemistry in a.m. -Continue patient on benzodiazipinen therapy via CIID protocol. -Obtain nonurgent surgical consultation in order to help establish follow-up for elective cholecystectomy for calcified gallbladder.
[2017-11-17 09:11] LABS: ABSOLUTE BASOPHIL COUNT 0 /CUMM (0.0-0.2); ABSOLUTE EOSINOPHIL COUNT 0 /CUMM (0.0-0.7); ABSOLUTE GRANULOCYTE CT 2.3 /CUMM (1.4-6.5); ABSOLUTE LYMPH COUNT 1.2 /CUMM (1.2-3.4); ABSOLUTE MONOCYTE COUNT 0.5 /CUMM (0.10-0.60)
[2017-11-17 09:19] LABS: BASOPHIL % 0.6 % (0.0-2.0); EOSINOPHIL % 0.6 % (0-5); GRANULOCYTE % 56.4 % (42.2-75.2); MEAN CORPUSCULAR HGB CONC 34.4 G/DL (33.0-37.0); MEAN PLATELET VOLUME 8.7 FL (7.4-10.4); PLATELET COUNT 129 /CUMM (130-400); RBC DISTRIBUTION WIDTH 14.4 % (11.5-14.5); WHITE BLOOD CELL COUNT 4.2 /CUMM (4.8-10.8)
[2017-11-17 09:32] LABS: HEMATOCRIT 30.4 % (37-47); RED BLOOD CELL CT 3.26 /CUMM (4.20-5.40)
--- NOTE | 2017-11-17 09:41 | ULTRASOUND REPORT ---
EXAMINATION: US ABDOMEN LIMITED CLINICAL INFORMATION: Alcoholic hepatitis. Nausea and vomiting. Transaminitis.. COMPARISON: CT 08/30/2017 TECHNIQUE: Real-time imaging of the right upper quadrant abdominal viscera. FINDINGS: PANCREAS: The pancreatic head and body appear unremarkable. The tail was not seen. Pancreatic duct is at the upper limit of normal in caliber measuring 0.3 cm. LIVER: There is diffuse increased liver parenchymal echogenicity, consistent with hepatic steatosis. The liver is normal in size and contour. No biliary ductal dilatation. GALLBLADDER: There is a 0.5 cm calcification at the gallbladder wall fundus. The gallbladder is physiologically distended without evidence of stones, sludge, polyps, wall thickening or pericholecystic fluid. COMMON BILE DUCT: Normal in caliber measuring 0.4 cm in diameter. RIGHT KIDNEY: Normal. No hydronephrosis. No renal calculi or focal parenchymal lesions. The kidney measures 10.6 cm in maximum dimension. FREE FLUID: None. IMPRESSION: Hepatic steatosis. Redemonstration of the small calcification at the gallbladder wall. Otherwise unremarkable appearance.
[2017-11-18] VITALS (13 sets, daily range): BP systolic 95–110; BP diastolic 55–64
[2017-11-18 04:52] LABS: ABSOLUTE BASOPHIL COUNT 0 /CUMM (0.0-0.2); ABSOLUTE EOSINOPHIL COUNT 0.1 /CUMM (0.0-0.7); ABSOLUTE GRANULOCYTE CT 1.9 /CUMM (1.4-6.5); ABSOLUTE LYMPH COUNT 1.4 /CUMM (1.2-3.4); ABSOLUTE MONOCYTE COUNT 0.5 /CUMM (0.10-0.60); EOSINOPHIL % 1.5 % (0-5); GRANULOCYTE % 49.4 % (42.2-75.2); HEMATOCRIT 31.5 % (37-47); MEAN CORPUSCULAR HGB 31.4 PG (27.0-31.0); MEAN CORPUSCULAR HGB CONC 33.6 G/DL (33.0-37.0); MEAN CORPUSCULAR VOLUME 93.4 FL (81.0-99.0); PLATELET COUNT 144 /CUMM (130-400); RBC DISTRIBUTION WIDTH 14.7 % (11.5-14.5); RED BLOOD CELL CT 3.38 /CUMM (4.20-5.40); WHITE BLOOD CELL COUNT 3.9 /CUMM (4.8-10.8)
--- NOTE | 2017-11-18 08:22 | PN- Housestaff ---
Elver LIU,[facility] 11/18/17 0822: Subjective Follow-up For: Alcoholic pancreatitis Tele-Events Since Last Visit: No overnight acute events Subjective: Patient seen and examined having breakfast alert and oriented 2 nurse reported pt is agitated and pulling out lines, CIWA running low Max CIWA 10. Review of Systems Constitutional: Reports: see HPI. Objective Last 24 Hrs of Vital Signs/I&O Vital Signs Date Time Temp Pulse Resp B/P B/P Pulse O2 O2 Flow FiO2 Mean Ox Delivery Rate 11/18 0655 97.5 86 18 110/64 / 0500 97.5 86 18 110/64 11/18 0341 97.6 68 20 102/61 / 0200 97.6 68 20 102/61 / 0200 97.6 68 20 102/61 / 0140 97.6 68 20 102/61 98 Room Air / 0000 97.6 68 20 102/61 /05 0000 97.6 68 20 102/61 /04 2213 97.7 85 18 117/54 98 Room Air / 2140 97.7 84 18 117/54 98 Room Air / 1700 98.5 88 20 104/57 97 Room Air / 1558 98.0 85 18 96/53 97 Room Air / 1440 98.4 84 18 105/55 /04 1439 98.4 85 18 105/55 98 Room Air / 1227 98.4 76 18 99/61 /04 1134 98.2 76 18 99/61 98 Room Air Intake & Output 11/18 1600 11/18 0800 11/18 0000 Intake Total 1000 450 Output Total Balance 1000 450 Intake, IV 600 Intake, Oral 400 450 Number 4 1 Bowel Movements Physical Exam General Appearance: Alert Cardiovascular: Normal S1, Normal S2 Lungs: Clear to Auscultation Abdomen: mild epigastric tenderness Current Medications: Current Medications Sig/Liane Start time Last Medication Dose Route Stop Time Status Admin Aspirin 81 MG DAILY 11/17 1000 AC 11/17 PO 1021 Folic Acid 1 MG DAILY 11/17 1000 AC 11/17 PO 1021 Gabapentin 600 MG QAM 11/17 1000 AC 11/17 PO 1021 Gabapentin 400 MG AT BEDTIME 11/16 2200 AC 11/17 PO 2257 Heparin Sodium 5,000 UNIT Q8 11/16 2200 AC 11/18 (Porcine) SC 0600 Ibuprofen 0 .STK-MED ONE 11/17 1428 DC PO Ibuprofen 400 MG TID PRN 11/17 1415 AC 11/17 PO 1426 Lidocaine 1 PAT DAILY 11/17 1000 AC 11/17 EXT 1021 Lorazepam 0 .STK-MED ONE 11/18 0350 DC .ROUTE Lorazepam 0 .STK-MED ONE 11/17 2243 DC PO Lorazepam 2 MG Q12 11/17 2200 AC 11/17 PO 2257 Lorazepam 2 MG Q6 11/16 2115 DC 11/17 PO 0306 Lorazepam 0 Q1P PRN 11/16 2045 AC 11/18 IV 0345 Magnesium Oxide 400 MG BID 11/18 1000 AC PO Magnesium Sulfate 1 GM ONCE ONE 11/17 1045 DC 11/17 Dextrose/Water 100 ML IV 11/17 1444 1055 Multivitamins 1 TAB DAILY 11/16 2125 AC 11/17 PO 1021 Nicotine 7 MG DAILY 11/17 1000 AC TOP Olanzapine 5 MG AT BEDTIME 11/16 2200 AC 11/17 PO 2257 Omeprazole 40 MG DAILY AC 11/17 0700 AC 11/17 PO 0655 Ondansetron HCl 4 MG Q6P PRN 11/16 2130 AC 11/17 IV 0715 Phosphate 500 MG BID 11/18 1000 AC PO 11/19 0600 Phosphate 500 MG Q12 11/17 1715 DC 11/17 PO 11/17 2201 2257 Potassium Chloride 40 MEQ ONCE ONE 11/18 0815 DC PO 11/18 0816 Potassium Chloride 0 .STK-MED ONE 11/17 1048 DC PO Potassium Chloride 40 MEQ ONCE ONE 11/17 1045 CAN PO 11/17 1046 Potassium Chloride 40 MEQ ONCE ONE 11/17 1045 DC 11/17 PO 11/17 1046 1046 Potassium Phosphate 25 mMol ONE ONE 11/17 2200 DC 11/17 Sodium Chloride 250 ML IV 11/18 0207 2334 Potassium Phosphate 15 mMol ONE ONE 11/17 1030 DC 11/17 Sodium Chloride 250 ML IV 11/17 1434 1224 Sodium Chloride 1,000 ML Q6H 11/16 2045 DC 11/17 IV 11/18 0244 2259 Thiamine HCl 50 MG DAILY 11/17 1000 AC 11/17 PO 1021 Last 24 Hrs of Lab/Nicholas Results Last 24 Hrs of Labs/Mics: Laboratory Tests 11/18/17 0443: Cortisol AM Sample 8.5 11/18/17 0443: Anion Gap 8, Estimated GFR > 60, BUN/Creatinine Ratio 10.0, Phosphorus 1.8 L, Magnesium 1.5 L, Total Bilirubin 1.7 H, Direct Bilirubin 1.4 H, AST 232 H, ALT 71 H, Alkaline Phosphatase 174 H, Total Protein 5.2 L, Albumin 2.8 L, CBC w Diff NO MAN DIFF REQ, RBC 3.38 L, MCV 93.4, MCH 31.4 H, RDW 14.7 H, MPV 8.0, Gran % 49.4, Lymphocytes % 35.8, Monocytes % 12.3 H, Eosinophils % 1.5, Basophils % 1.0, Absolute Granulocytes 1.9, Absolute Lymphocytes 1.4, Absolute Monocytes 0.5, Absolute Eosinophils 0.1, Absolute Basophils 0, PUBS MCHC 33.6 11/17/17 2145: Ur Random Creatinine 19.2, Ur Random Sodium 9 L, Ur Random Potassium 7.7, Fraction Sodium Excret 0.1 11/17/172005: Phosphorus 0.8 *L, 25-OH Vitamin D Total 9.1 L 11/17/17 1628: Phosphorus 1.1 L, Magnesium 1.8 11/17/17 1430: Sodium Cancelled, Potassium Cancelled, Chloride Cancelled, Carbon Dioxide Cancelled, Anion Gap Cancelled, BUN Cancelled, Creatinine Cancelled, BUN/ Creatinine Ratio Cancelled Microbiology 11/18 0415 STOOL: Clostridium difficile Toxin A & B - RECD Assessment/Plan Assessment: Patient is a 57-year-old female with past medical history significant for alcohol abuse, pancreatitis, hyperlipidemia, with previous admission for alcohol detox presents this admission with findings consistent for pancreatitis 2/2 to alcohol abuse. Patient is being managed on telemetry for following conditions #Pancreatitis Most likely alcoholic given she's been drinking a liter a day of vodka. BISAP score of 0 (no CXR to endure she doesnt have pleural effusion) * Continue IV hydration for her acute pancreatitis at 75cc/h * Zofran as needed for nausea * triglyceride level 191 * Patient advanced to clear liquid diet yesterday and we can further advance as tolerated. #Transaminitis Most likely secondary to alcoholic hepatitis,Of note she was negative for hepatitis back in August 2017; Tata's discriminant function good prognosis. RUQ Hepatic steatosis and Redemonstration of the small calcification at the gallbladder wall. The continue to be elevated, we will keep on trending * Monitor LFT's #Hypokalemia and hypomagnesemia Most likely secondary to alcoholism as well as dehydration and vomiting * Replete aggressively * Follow-up BEP #Hypophosphatemia ae most likely secondary to alcoholism Patient presented with Po4 0.6, repleated now 1.8 * Continue to monitor phosphate levels #Alcohol dependence CIWA running low max 10 * Ativan 2 mg every 4 scheduled and Ativan per CIWA * thiamine, folate and a multivitamin * Social work consult pending #ECG: ? T-wave changes in V2 just one lead * Awaiting cardiology evaluation of abnormal EKG. She has no changes on the EKG today. If cleared by cardiology patient can be downgraded to general medicine #GERD Continue on omeprazole #Peripheral neuropathy Continue on gabapentin 600 mg in morning and 4 mg at bedtime #Chronic back pain secondary to disc herniation Continue Lidoderm patch #Porcine gallbladder surgery consult PLACED for outPt management #DietNothing by mouth for now #DVT prophylaxis Heparin 5000minutes 3 times a day subcutaneous #CODE STATUS Full code Problem List: 1. Alcohol intoxication Pain Ratin Pain Location: diffuse Pain Goal: Pain 4 or less Pain Plan: motrin Tomorrow's Labs & Rationales: cbc bep [facility] mag [facility] 11/18/17 1145: Attending MD Review Statement Attending Statement Attending MD Statement: examined this patient, discuss w/resident/PA/DOCUMENT PREPARER MICROFILMING, agreed w/resident/PA/DOCUMENT PREPARER MICROFILMING, reviewed EMR data (avail), discussed with nursing, discussed with case mgmt, amended to note Attending Assessment/Plan: Patient seen and examined. Nursing staff report that patient has been getting more agitated and confused. On examination she is alert and oriented to place and person. She thought the year was 2018 and was unsure about the time of day. She did appear to answer all the questions appropriately. She was restless. CIWA score was low yesterday however it has been trending up today scoring over 10. She did not require as needed Ativan yesterday but is doing so today. She does report that her abdominal pain has improved today. She is tolerating oral intake. Denies any nausea vomiting. On examination pupils are equal and reactive. She has no facial asymmetry. She has no tremors. Heart sounds are regular. She has good entry bilaterally. Abdomen is soft and nontender with normal bowel sounds. She has no peripheral edema. Problems: 1. Acute on chronic pancreatitis; alcohol-induced 2. Abnormal EKG; nonspecific 3. Chronic anemia 4. Hypokalemia; resolved 5. Polysubstance abuse 6. Calcified gallbladder. Plan: - Her confusion appears to be related to alcohol withdrawal. Continue CIWA score. Change p.o. Ativan to 2 mg orally every 4 hours. -Continue IV hydration but decrease rate to 75 cc an hour. Advance diet as tolerated. Maintain aspiration precautions. -Awaiting cardiology evaluation of abnormal EKG. She has no changes on the EKG today. -Her hemoglobin level is stable. Hemoglobin on presentation was likely due to hemoconcentration. -Follow-up with the cardiology service regarding need for further cardiac monitoring process downgrading to the general medical service. -Blood pressrue mildly low yesterday. Currently better. Will monitor closely and obtain orthostatics if BP is stable.
--- NOTE | 2017-11-18 11:19 | Patient Discharge Instructions ---
Discharge Instructions General Discharge Information You were seen/treated for: Acute on chronic pancreatitis; alcohol-induced Alcohol abuse Special Instructions: 1please follow-up with your PCP in 1 week of discharge 2please follow up with middle card tender for calcified gallbladder in 1 week of discharge 3please follow-up with your decator operator for abnormal EKG in 1 week of discharge 4please avoid drinking alcohol Diet Continue normal diet: Yes Activity Full Activity/No Limits: Yes Acute Coronary Syndrome Inclusion Criteria At DC or during hospital stay patient has or had the following: ACS DIAGNOSIS No Discharge Core Measures Meds if any: Prescribed or Continued at Discharge Meds if any: NOT Prescribed or Continued at Discharge Congestive Heart Failure Inclusion Criteria At DC or during hospital stay patient has or had the following: CHF DIAGNOSIS No Discharge Core Measures Meds if any: Prescribed or Continued at Discharge Meds if any: NOT Prescribed or Continued at Discharge Cerebrovascular accident Inclusion Criteria At DC or during hospital stay patient has or had the following: CVA/TIA Diagnosis No Discharge Core Measures Meds if any: Prescribed or Continued at Discharge Meds if any: NOT Prescribed or Continued at Discharge Venous thromboembolism Inclusion Criteria VTE Diagnosis No VTE Type NONE VTE Confirmed by (Test) NONE Discharge Core Measures - Per Current guidelines, there needs to be overlap - treatment for the first 5 days of Warfarin therapy. - If discharged on Warfarin prior to 5 days of - overlap therapy, the patient will need to be - assessed for post discharge needs including - *Post discharge parental anticoagulation - *Warfarin and/or parental anticoagulation education - *Follow up date to check INR post discharge At least 5 days overlap therapy as Inpatient No Meds if any: Prescribed or Continued at Discharge Note: Overlap Therapy is Warfarin and Anticoagulant Meds if any: NOT Prescribed or Continued at Discharge
--- NOTE | 2017-11-18 14:58 | Cons- Cardiology ---
General Information and HPI Consulting Request Date of Consult: 11/18/17 Requested By: Nidia Inman MD Reason for Consult: Abnormal EKG Source of Information: patient, old records History of Present Illness: This is a 57-year-old female with an extended past the echo history there is significant for chronic alcohol abuse, hypokalemia, prior pancreatitis, neuropathy, etc. The patient is now admitted to the hospital with recurrent acute on chronic pancreatitis. I was asked see the patient for evaluation of an abnormal ECG. The patient denies any cardiac symptoms or any known cardiac history. Her ECG shows inverted T-wave in leads V1 and V2. No other significant abnormalities are noted. Her pancreatitis symptoms to radiate somewhat to the midepigastrium and are described as a heartburn discomfort. Although unlikely, the possibility of associated cardiac symptoms cannot be completely excluded by history. The patient denies any exertional symptoms to suggest myocardial ischemia, however. Allergies/Medications Allergies: Coded Allergies: Penicillins (Mild, RASH 01/14/16) Sulfa (Sulfonamide Antibiotics) (Mild, RASH 01/14/16) amoxicillin (Mild, RASH 01/14/16) latex (Mild, RASH 01/14/16) hydrocortisone (LOST LEFT EYE 06/30/17) Home Med List: Aspirin (Children's Aspirin) 81 MG TAB.CHEW 1 TAB PO DAILY HEART/BLOOD ( Reported) Atorvastatin Calcium 20 MG TABLET 1 TAB PO DAILY CHOLESTEROL (Reported) Folic Acid 1 MG TABLET 1 TAB PO DAILY SUPPLEMENT (Reported) Gabapentin (Neurontin) 300 MG CAPSULE 2 CAP PO QAM NERVE PAIN (Reported) Gabapentin (Neurontin) 400 MG CAPSULE 1 CAP PO AT BEDTIME NEUROPATHY ( Reported) Lidocaine (Lidoderm) 5 % ADH..PATCH 1 PAT TOP DAILY PAIN (Reported) may wear up to 12 hours Multivitamin-Min/Iron/FA/Vit K (Multi-Day Plus Minerals Tablet) 18 MG IRON-400 MCG-25 MCG TABLET 1 TAB PO DAILY SUPPLEMENT (Reported) Olanzapine 5 MG TABLET 1 TAB PO AT BEDTIME Hallucination . Omeprazole 40 MG CAPSULE.DR 1 CAP PO DAILY ALCOHOL GASTRITIS . Thiamine HCl (Vitamin B-1) 50 MG TABLET 1 TAB PO DAILY SUPPLEMENT (Reported) Current Medications: Current Medications Sig/Liane Start time Last Medication Dose Route Stop Time Status Admin Aspirin 81 MG DAILY 11/17 1000 AC 11/18 PO 1030 Folic Acid 1 MG DAILY 11/17 1000 AC 11/18 PO 1030 Gabapentin 600 MG QAM 11/17 1000 AC 11/18 PO 1030 Gabapentin 400 MG AT BEDTIME 11/16 2200 AC 11/17 PO 2257 Heparin Sodium 5,000 UNIT Q8 11/16 2200 AC 11/18 (Porcine) SC 0600 Ibuprofen 400 MG TID PRN 11/17 1415 AC 11/17 PO 1426 Lidocaine 1 PAT DAILY 11/17 1000 AC 11/18 EXT 1030 Lorazepam 2 MG Q6 11/18 1800 AC PO Lorazepam 0 .STK-MED ONE 11/18 1230 DC .ROUTE Lorazepam 0 .STK-MED ONE 11/18 1020 DC PO Lorazepam 0 .STK-MED ONE 11/18 0350 DC .ROUTE Lorazepam 0 .STK-MED ONE 11/17 2243 DC PO Lorazepam 2 MG Q12 11/17 2200 DC 11/18 PO 1030 Lorazepam 2 MG Q6 11/16 2115 DC 11/17 PO 0306 Lorazepam 0 Q1P PRN 11/16 2045 AC 11/18 IV 1231 Magnesium Oxide 400 MG BID 11/18 1000 AC 11/18 PO 1030 Multivitamins 1 TAB DAILY 11/16 2125 AC 11/18 PO 1030 Nicotine 7 MG DAILY 11/17 1000 AC 11/18 TOP 1030 Olanzapine 5 MG AT BEDTIME 11/16 2200 AC 11/17 PO 2257 Omeprazole 40 MG DAILY AC 11/17 0700 AC 11/17 PO 0655 Ondansetron HCl 4 MG Q6P PRN 11/16 2130 AC 11/17 IV 0715 Phosphate 500 MG BID 11/18 1000 AC 11/18 PO 11/19 0600 1030 Phosphate 500 MG Q12 11/17 1715 DC 11/17 PO 11/17 2201 2257 Potassium Chloride 40 MEQ ONCE ONE 11/18 0815 DC 11/18 PO 11/18 0816 1030 Potassium Phosphate 25 mMol ONE ONE 11/17 2200 DC 11/17 Sodium Chloride 250 ML IV 11/18 0207 2334 Sodium Chloride 1,000 ML Q6H 11/16 2045 DC 11/17 IV 11/18 0244 2259 Thiamine HCl 50 MG DAILY 11/17 1000 AC 11/18 PO 1030 Past History Travel History Traveled to [place] past 21 day No Medical History Neurological: peripheral neuropathy, seizure, AVM BRAIN SURGERY- left craniotomy 1994 with resolved right deficit. EENT: NONE Cardiovascular: NONE Respiratory: NONE Gastrointestinal: peptic ulcer disease Hepatic: intermittent abnormal LFTs/EtOH abuse. Renal: NONE Musculoskeletal: chronic back pain, disk herniation (as per MRI), RESTLESS LEG SYNDROME Psychiatric: alcohol dependence, cocaine use. Endocrine: adrenal insufficiency Blood Disorders: NONE Cancer(s): ovarian cancer, "? 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 FATHER (?prostate Ca.). Age 87. Relation not specified for: No pertinent family history Psychosocial History Who Do You Live With? child, self, brother Services at Home: None, sister prepares her meds for her Primary Language: Syrian Smoking Status: Current Everyday Smoker ETOH Use: occasional use Illicit Drug Use: denies illicit drug use Living Will? unknown Power of Field Installer/HCP? unknown Functional Ability ADLs Independent: dressing, eating. Needs Assist: toileting, bathing. Ambulation: independent IADLs Independent: food prep. Needs Assist: shopping, housework, transportation. Unknown: finances, medication admin. ECHO Results (as available) Date of last Echo 06/08/15 Report: CONCLUSIONS Normal size left ventricle. Mild concentric left ventricular hypertrophy. Normal left ventricular ejection fraction visually estimated at >65 Abnormal relaxation filling pattern of the left ventricle for age (stage 1 diastolic dysfunction). Normal right ventricular size and function. Normal atrial size. No mitral regurgitation. No aortic valve stenosis or regurgitation. Trace tricuspid regurgitation. No evidence of pulmonary hypertension. No pulmonic regurgitation. Exam & Diagnostic Data Vital Signs and I&O Vital Signs Date Time Temp Pulse Resp B/P B/P Pulse O2 O2 Flow FiO2 Mean Ox Delivery Rate 11/18 1200 97.6 86 20 96/60 11/18 0655 97.5 86 18 110/64 11/18 0500 97.5 86 18 110/64 11/18 0341 97.6 68 20 102/61 11/18 0200 97.6 68 20 102/61 11/18 0200 97.6 68 20 102/61 11/18 0140 97.6 68 20 102/61 98 Room Air 11/18 0000 97.6 68 20 102/61 01/05 0000 97.6 68 20 102/61 11/17 2213 97.7 85 18 117/54 98 Room Air 11/17 2140 97.7 84 18 117/54 98 Room Air 11/17 1700 98.5 88 20 104/57 97 Room Air 11/17 1558 98.0 85 18 96/53 97 Room Air Intake & Output 11/18 0811/18 0000 11/17 1600 11/17 0811/17 0000 Intake Total 1000 450 0 2200 Output Total 400 Balance 1000 450 0 1800 Intake, IV 600 2200 Intake, Oral 400 450 0 Number 4 1 Bowel Movements Output, Urine 400 Patient 220 lb Weight Weight Reported by Patient Measurement Method Physical Exam: General Appearance Alert, Oriented X3, Cooperative, Mild Distress HEENT Atraumatic, PERRLA, EOMI, dry mucosal membranes, scleral icterus Neck No JVD; carotids normal bilaterally Cardiovascular Regular Rate, Normal S1, Normal S2, No audible murmurs Lungs Clear to Auscultation and percussion bilaterally Abdomen Normal Bowel Sounds, Soft, tender to palpation in the epigastric region, no rebound, no guarding, no rigidity Extremities no significant cyanosis clubbing or edema. Vascular pulses are 2+ and equal bilaterally Labs/Nicholas Results: Laboratory Tests 11/18 11/18 11/17 11/17 0443 0443 2145 2005 Chemistry Sodium (137 - 145 mmol/L) 135 L Potassium (3.5 - 5.1 mmol/L) 3.7 Chloride (98 - 107 mmol/L) 101 Carbon Dioxide (22 - 30 mmol/L) 26 Anion Gap (5 - 16) 8 BUN (7 - 17 mg/dL) 4 L Creatinine (0.5 - 1.0 mg/dL) 0.4 L Estimated GFR (>60 ml/min) > 60 BUN/Creatinine Ratio (7 - 25 %) 10.0 Phosphorus (2.5 - 4.5 mg/dL) 1.8 L 0.8 *L Magnesium (1.6 - 2.3 mg/dL) 1.5 L Total Bilirubin (0.2 - 1.3 mg/dL) 1.7 H Direct Bilirubin (< 0.4 mg/dL) 1.4 H AST (14 - 36 U/L) 232 H ALT (9 - 52 U/L) 71 H Alkaline Phosphatase (<127 U/L) 174 H Total Protein (6.3 - 8.2 g/dL) 5.2 L Albumin (3.5 - 5.0 g/dL) 2.8 L 25-OH Vitamin D Total (30 - 100 ng/ml) 9.1 L Cortisol AM Sample (4.46 - 22.7 ug/dL) 8.5 Hematology CBC w Diff NO MAN DIFF REQ WBC (4.8 - 10.8 /CUMM) 3.9 L RBC (4.20 - 5.40 /CUMM) 3.38 L Hgb (12.0 - 16.0 G/DL) 10.6 L Hct (37 - 47 %) 31.5 L MCV (81.0 - 99.0 FL) 93.4 MCH (27.0 - 31.0 PG) 31.4 H RDW (11.5 - 14.5 %) 14.7 H Plt Count (130 - 400 /CUMM) 144 MPV (7.4 - 10.4 FL) 8.0 Gran % (42.2 - 75.2 %) 49.4 Lymphocytes % (20.5 - 51.1 %) 35.8 Monocytes % (1.7 - 9.3 %) 12.3 H Eosinophils % (0 - 5 %) 1.5 Basophils % (0.0 - 2.0 %) 1.0 Absolute Granulocytes (1.4 - 6.5 /CUMM) 1.9 Absolute Lymphocytes (1.2 - 3.4 /CUMM) 1.4 Absolute Monocytes (0.10 - 0.60 /CUMM) 0.5 Absolute Eosinophils (0.0 - 0.7 /CUMM) 0.1 Absolute Basophils (0.0 - 0.2 /CUMM) 0 PUBS MCHC (33.0 - 37.0 G/DL) 33.6 Urines Ur Random Creatinine (mg/dL) 19.2 Ur Random Sodium (30 - 90 mmol/L) 9 L Ur Random Potassium (mmol/L) 7.7 Fraction Sodium Excret (<1% %) 0.1 11/17 11/17 11/17 1628 1430 0858 Chemistry Sodium (137 - 145 mmol/L) Cancelled 135 L Potassium (3.5 - 5.1 mmol/L) Cancelled 3.4 L Chloride (98 - 107 mmol/L) Cancelled 98 Carbon Dioxide (22 - 30 mmol/L) Cancelled 26 Anion Gap (5 - 16) Cancelled 11 BUN (7 - 17 mg/dL) Cancelled 10 Creatinine (0.5 - 1.0 mg/dL) Cancelled 0.4 L Estimated GFR (>60 ml/min) > 60 BUN/Creatinine Ratio (7 - 25 %) Cancelled 25.0 Phosphorus (2.5 - 4.5 mg/dL) 1.1 L 0.6 *L Magnesium (1.6 - 2.3 mg/dL) 1.8 Total Bilirubin (0.2 - 1.3 mg/dL) 1.5 H Direct Bilirubin (< 0.4 mg/dL) 1.2 H AST (14 - 36 U/L) 135 H ALT (9 - 52 U/L) 49 Alkaline Phosphatase (<127 U/L) 148 H Total Protein (6.3 - 8.2 g/dL) 5.1 L Albumin (3.5 - 5.0 g/dL) 2.7 L Hematology CBC w Diff NO MAN DIFF REQ WBC (4.8 - 10.8 /CUMM) 4.2 L RBC (4.20 - 5.40 /CUMM) 3.26 L Hgb (12.0 - 16.0 G/DL) 10.4 L Hct (37 - 47 %) 30.4 L MCV (81.0 - 99.0 FL) 93.0 MCH (27.0 - 31.0 PG) 32.0 H RDW (11.5 - 14.5 %) 14.4 Plt Count (130 - 400 /CUMM) 129 L MPV (7.4 - 10.4 FL) 8.7 Gran % (42.2 - 75.2 %) 56.4 Lymphocytes % (20.5 - 51.1 %) 29.4 Monocytes % (1.7 - 9.3 %) 13.0 H Eosinophils % (0 - 5 %) 0.6 Basophils % (0.0 - 2.0 %) 0.6 Absolute Granulocytes (1.4 - 6.5 /CUMM) 2.3 Absolute Lymphocytes (1.2 - 3.4 /CUMM) 1.2 Absolute Monocytes (0.10 - 0.60 /CUMM) 0.5 Absolute Eosinophils (0.0 - 0.7 /CUMM) 0 Absolute Basophils (0.0 - 0.2 /CUMM) 0 PUBS MCHC (33.0 - 37.0 G/DL) 34.4 11/17 11/17 11/16 11/16 0538 0117 2200 2105 Chemistry Sodium (137 - 145 mmol/L) 132 L Potassium (3.5 - 5.1 mmol/L) 3.6 Chloride (98 - 107 mmol/L) 98 Carbon Dioxide (22 - 30 mmol/L) 22 Anion Gap (5 - 16) 12 BUN (7 - 17 mg/dL) 11 Creatinine (0.5 - 1.0 mg/dL) 0.4 L Estimated GFR (>60 ml/min) > 60 BUN/Creatinine Ratio (7 - 25 %) 27.5 H Magnesium (1.6 - 2.3 mg/dL) 1.6 Troponin I (< 0.11 ng/ml) < 0.01 Cancelled < 0.01 Coagulation PT (9.4 - 12.5 SEC) 12.3 INR (0.90 - 1.19) 1.17 Toxicology Urine Opiates Screen (>2000 NG/ML) < 100.00 Methadone Screen (>300 NG/ML) < 40 Barbiturate Screen (>200 NG/ML) < 60 Ur Phencyclidine Scrn (>25 NG/ML) < 6.00 Amphetamines Screen (>1000 NG/ML) < 100 U Benzodiazepines Scrn (>200 NG/ML) > 800 H Urine Cocaine Screen (>300 NG/ML) > 1000 H Urine Cannabis Screen (>50 NG/ML) < 5.00 11/16 1620 Chemistry Sodium (137 - 145 mmol/L) 134 L Potassium (3.5 - 5.1 mmol/L) 2.8 *L Chloride (98 - 107 mmol/L) 87 L Carbon Dioxide (22 - 30 mmol/L) 23 Anion Gap (5 - 16) 24 H BUN (7 - 17 mg/dL) 12 Creatinine (0.5 - 1.0 mg/dL) 0.5 Estimated GFR (>60 ml/min) > 60 BUN/Creatinine Ratio (7 - 25 %) 24.0 Glucose (65 - 99 mg/dL) 114 H Calcium (8.4 - 10.2 mg/dL) 9.9 Magnesium (1.6 - 2.3 mg/dL) 1.3 L Total Bilirubin (0.2 - 1.3 mg/dL) 2.2 H Direct Bilirubin (< 0.4 mg/dL) 1.7 H AST (14 - 36 U/L) 179 H ALT (9 - 52 U/L) 61 H Alkaline Phosphatase (<127 U/L) 219 H Total Protein (6.3 - 8.2 g/dL) 7.3 Albumin (3.5 - 5.0 g/dL) 4.4 Globulin (1.9 - 4.2 gm/dL) 2.9 Albumin/Globulin Ratio (1.1 - 2.2 %) 1.5 Triglycerides (<150 mg/dL) 191 H Amylase (30 - 110 U/L) 135 H Lipase (23 - 300 U/L) 2482 H Vitamin B12 (239 - 931 pg/mL) 239 Folate (2.76 - 20.0 ng/mL) 3.1 Hematology CBC w Diff NO MAN DIFF REQ WBC (4.8 - 10.8 /CUMM) 5.9 RBC (4.20 - 5.40 /CUMM) 4.40 Hgb (12.0 - 16.0 G/DL) 14.0 Hct (37 - 47 %) 41.0 MCV (81.0 - 99.0 FL) 93.2 MCH (27.0 - 31.0 PG) 31.9 H RDW (11.5 - 14.5 %) 14.9 H Plt Count (130 - 400 /CUMM) 144 MPV (7.4 - 10.4 FL) 9.1 Gran % (42.2 - 75.2 %) 62.3 Lymphocytes % (20.5 - 51.1 %) 25.6 Monocytes % (1.7 - 9.3 %) 11.6 H Eosinophils % (0 - 5 %) 0.3 Basophils % (0.0 - 2.0 %) 0.2 Absolute Granulocytes (1.4 - 6.5 /CUMM) 3.7 Absolute Lymphocytes (1.2 - 3.4 /CUMM) 1.5 Absolute Monocytes (0.10 - 0.60 /CUMM) 0.7 H Absolute Eosinophils (0.0 - 0.7 /CUMM) 0 Absolute Basophils (0.0 - 0.2 /CUMM) 0 PUBS MCHC (33.0 - 37.0 G/DL) 34.2 Toxicology Serum Alcohol (<10 MG/DL) 73.0 Diagnostic Data EKG Results Normal sinus rhythm; T-wave inversion these V1 and V2. Assessment/Plan Assessment/Plan Assessment: 1. Abnormal ECG; possibly related to associated metabolic abnormalities 2. Acute on chronic pancreatitis 3. Transaminitis 4. Normocytic anemia 5. Persistent hypomagnesemia 6. Vitamin D deficiency 7. Vitamin B12 deficiency Recommendations: -At the moment, the patient appears to be stable from a cardiac standpoint. I do not see any evidence of any acute cardiac issues. The patient's ECG remains stable. Her serial troponins are negative. -For now, I see no reason that the patient cannot be transferred to the general medical floor. -Continue current treatment approach for pancreatitis -DT precautions -Consider repeat echocardiogram to reassess left ventricular function and wall motion. -At some point, the patient might benefit from a pharmacologic nuclear stress test as an outpatient. Consult Acknowledgment - Thank you for your consult request.
[2017-11-19] VITALS: BP 100/58
[2017-11-19 04:00] VITALS: BP 100/56
[2017-11-19 06:34] VITALS: BP 104/62
[2017-11-19 08:24] LABS: ABSOLUTE BASOPHIL COUNT 0 /CUMM (0.0-0.2); ABSOLUTE EOSINOPHIL COUNT 0.1 /CUMM (0.0-0.7); ABSOLUTE GRANULOCYTE CT 2.2 /CUMM (1.4-6.5); ABSOLUTE LYMPH COUNT 1.9 /CUMM (1.2-3.4); ABSOLUTE MONOCYTE COUNT 0.6 /CUMM (0.10-0.60); BASOPHIL % 0.5 % (0.0-2.0); EOSINOPHIL % 1.3 % (0-5); HEMATOCRIT 28.6 % (37-47); MEAN CORPUSCULAR HGB CONC 34.3 G/DL (33.0-37.0); MEAN CORPUSCULAR VOLUME 93.2 FL (81.0-99.0); MEAN PLATELET VOLUME 8.4 FL (7.4-10.4); PLATELET COUNT 158 /CUMM (130-400); RBC DISTRIBUTION WIDTH 15.1 % (11.5-14.5); RED BLOOD CELL CT 3.07 /CUMM (4.20-5.40); WHITE BLOOD CELL COUNT 4.8 /CUMM (4.8-10.8)
[2017-11-19 10:50] VITALS: BP 102/60
--- NOTE | 2017-11-19 10:55 | PN- Att Addend ---
Attending Addendum Attending Brief Note Patient seen and examined. Lying comfortably in bed not in acute distress. No issues overnight reported by nursing staff. Nursing staff reported less confusion. CIWA score appears to be improving. She did require 3 mg IV of Ativan yesterday. On examination she is alert and oriented 3. She is not confused compared to yesterday. She is conversant appropriately. Reports good appetite. She reports mild abdominal discomfort. Denies dysuria. Denies cough. She did have 4 bowel movement yesterday. Vital Signs Date Time Temp Pulse Resp B/P B/P Pulse O2 O2 Flow FiO2 Mean Ox Delivery Rate 11/19 0634 98.4 91 20 104/62 91 Room Air 11/19 0400 101.5 93 20 100/56 93 Room Air 11/19 0000 98.2 90 20 100/58 11/18 2353 98.2 90 20 100/58 94 Room Air 11/18 2131 98.6 98 18 98/64 11/18 2129 98.6 98 18 98/64 97 Room Air 11/18 2004 98.8 100 16 98/62 11/18 2003 98.8 100 16 98/62 98 Room Air 11/18 1811 97.4 100 15 95/55 11/18 1811 97.4 100 15 95/55 94 Room Air Room Air 11/18 1604 97.0 90 15 104/55 96 Room Air Room Air 11/18 1540 97.0 90 15 104/55 05 1539 97.0 90 15 104/55 96 Room Air Room Air 11/18 1200 97.6 86 20 96/60 General appearance: Well-developed, not in acute distress Heart: S1-S2 regular Lungs: Good entry bilaterally, clear to auscultation Abdomen: Nondistended, soft, nontender with normal bowel sounds Extremities: No pedal edema Skin: Intact with no rashes Neurologic: No gross focal neurologic deficits Laboratory Tests 11/19/17 0720: Anion Gap 7, Estimated GFR > 60, BUN/Creatinine Ratio 6.0 L, Phosphorus 1.2 L, Magnesium 1.4 L, CBC w Diff NO MAN DIFF REQ, RBC 3.07 L, MCV 93.2, MCH 32.0 H , RDW 15.1 H, MPV 8.4, Gran % 46.0, Lymphocytes % 39.9, Monocytes % 12.3 H, Eosinophils % 1.3, Basophils % 0.5, Absolute Granulocytes 2.2, Absolute Lymphocytes 1.9, Absolute Monocytes 0.6, Absolute Eosinophils 0.1, Absolute Basophils 0, PUBS MCHC 34.3 Problems: 1. Acute on chronic pancreatitis; alcohol-induced 2. Abnormal EKG; nonspecific 3. Chronic anemia 4. Hypokalemia; resolved 5. Polysubstance abuse 6. Calcified gallbladder. Plan: -She appears to be improving from alcohol withdrawal. Taper down her Ativan today. -She was noted to be febrile earlier on today with temperature 101.5. Likely related to pancreatitis. She had 4 bowel movements yesterday however stool was negative for Clostridium difficile toxin. -Obtain blood and urine cultures. Obtain chest x-ray. -Continue diet as tolerated. -Case discussed with the surgical service. 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 Outpatient follow-up is recommended. -Cardiology follow-up appreciated. Patient may benefit from an elective stress test as an outpatient.
[2017-11-19 14:07] VITALS: BP 102/62
--- NOTE | 2017-11-19 15:49 | Cons- General Surgery ---
See Addendum General Information and HPI Consulting Request Date of Consult: 11/18/17 Requested By: Nidia Inman MD History of Present Illness: CC: Vomiting HPI: 57-year-old yo non-diabetic smoker overweight female with a history of chronic back pain, pancreatitis last seen here 08/30/2017. History of alcohol abuse cocaine, she returns here because of nausea vomiting for 5 days she denies any right upper quadrant or upper abdominal pain if anything it's more in the left lower quadrant. She is a poor historian very forgetful she can't remember her family history. C/o RUQ / epigastric pain severe stabbing constant radiates straight through to upper back onset late at night lasting hours intermittent prior episodes during , , not worse with activity no relation to foods (ie. fried or cheese) relieved by time associated with n/v diarrhea no fevers no particular darkening of urine (ie iced tea) or lightening / loose stools (lehman), no FHx of gallbladder problems. Otherwise no changes bowel habits , weight or appetite. I've reviewed the PFSH. No history of GERD, PUD, bleeding problems, heart disease or issues with anesthesia. Allergies/Medications Allergies: Coded Allergies: Penicillins (Mild, RASH 01/14/16) Sulfa (Sulfonamide Antibiotics) (Mild, RASH 01/14/16) amoxicillin (Mild, RASH 01/14/16) latex (Mild, RASH 01/14/16) hydrocortisone (LOST LEFT EYE 06/30/17) Home Med List: Aspirin (Children's Aspirin) 81 MG TAB.CHEW 1 TAB PO DAILY HEART/BLOOD ( Reported) Atorvastatin Calcium 20 MG TABLET 1 TAB PO DAILY CHOLESTEROL (Reported) Folic Acid 1 MG TABLET 1 TAB PO DAILY SUPPLEMENT (Reported) Gabapentin (Neurontin) 300 MG CAPSULE 2 CAP PO QAM NERVE PAIN (Reported) Gabapentin (Neurontin) 400 MG CAPSULE 1 CAP PO AT BEDTIME NEUROPATHY ( Reported) Lidocaine (Lidoderm) 5 % ADH..PATCH 1 PAT TOP DAILY PAIN (Reported) may wear up to 12 hours Multivitamin-Min/Iron/FA/Vit K (Multi-Day Plus Minerals Tablet) 18 MG IRON-400 MCG-25 MCG TABLET 1 TAB PO DAILY SUPPLEMENT (Reported) Olanzapine 5 MG TABLET 1 TAB PO AT BEDTIME Hallucination . Omeprazole 40 MG CAPSULE.DR 1 CAP PO DAILY ALCOHOL GASTRITIS . Thiamine HCl (Vitamin B-1) 50 MG TABLET 1 TAB PO DAILY SUPPLEMENT (Reported) Current Medications: I reviewed Current Medications Sig/Liane Start time Last Medication Dose Route Stop Time Status Admin Aspirin 81 MG DAILY 11/17 1000 AC 11/22 PO 1005 Folic Acid 1 MG DAILY 11/17 1000 AC 11/22 PO 1005 Gabapentin 600 MG QAM 11/17 1000 AC 11/22 PO 1005 Gabapentin 400 MG AT BEDTIME 11/16 2200 AC 11/21 PO 2137 Heparin Sodium 5,000 UNIT Q8 11/16 2200 AC 11/22 (Porcine) SC 1439 Ibuprofen 400 MG TID PRN 11/17 1415 AC 11/22 PO 0233 Lidocaine 1 PAT DAILY 11/17 1000 AC 11/22 EXT 1004 Lorazepam 0.5 MG 1000 11/23 1000 AC PO 11/23 1001 Lorazepam 1 MG BID 11/22 1000 AC 11/22 PO 11/23 0000 1005 Lorazepam 1 MG Q6 11/20 1800 DC 11/21 PO 11/22 0000 2355 Lorazepam 0 Q1P PRN 11/16 2045 AC 11/18 IV 1620 Magnesium Oxide 400 MG BID 11/18 1000 AC 11/22 PO 1005 Multivitamins 1 TAB DAILY 11/16 2125 AC 11/22 PO 1004 Nicotine 7 MG DAILY 11/17 1000 AC 11/22 TOP 1005 Olanzapine 5 MG AT BEDTIME 11/16 2200 AC 11/21 PO 2137 Omeprazole 40 MG DAILY AC 11/17 0700 AC 11/22 PO 0547 Ondansetron HCl 4 MG .STK-MED ONE 11/21 2249 DC IM 11/21 2250 Ondansetron HCl 4 MG Q6P PRN 11/16 2130 AC 11/22 IV 1645 Phosphate 250 MG PC AND AT BEDTIME 11/21 1300 DC 11/21 PO 2136 Phosphate 250 MG BID 11/20 1407 AC 11/22 PO 1005 Thiamine HCl 50 MG DAILY 11/17 1000 AC 11/22 PO 1005 Past History Medical History Neurological: peripheral neuropathy, seizure, AVM BRAIN SURGERY- left craniotomy 1994 with resolved right deficit. EENT: NONE Cardiovascular: NONE Respiratory: NONE Gastrointestinal: peptic ulcer disease Hepatic: intermittent abnormal LFTs/EtOH abuse. Renal: NONE Musculoskeletal: chronic back pain, disk herniation (as per MRI), RESTLESS LEG SYNDROME Psychiatric: alcohol dependence, cocaine use. Endocrine: adrenal insufficiency Blood Disorders: NONE Cancer(s): ovarian cancer, "? 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 FATHER (?prostate Ca.). Age 87. Relation not specified for: No pertinent family history Psychosocial History Who Do You Live With? child, self, brother Services at Home: None, sister prepares her meds for her Primary Language: Indonesian Smoking Status: Current Everyday Smoker ETOH Use: occasional use Illicit Drug Use: denies illicit drug use Living Will? unknown Power of Shank Turner/HCP? unknown Functional Ability ADLs Independent: dressing, eating. Needs Assist: toileting, bathing. Ambulation: independent IADLs Independent: food prep. Needs Assist: shopping, housework, transportation. Unknown: finances, medication admin. Review of Systems Review of Systems: Limited because of patient's lack of a collection right now Constitutional: There was mention of fever at home ENMT: Unobtainable Cardiovascular: Unobtainable Respiratory: No shortness of breath, cough unobtainable GI: GERD, no report of bleeding per rectum : Unobtainable Musculoskeletal: As above chronic back pain Skin / Breast: States has jaundice Psychiatric: history of drug or alcohol abuse depression anxiety Hematologic / lymphatic system: Unobtainable Exam & Diagnostic Data Vital Signs and I&O I reviewed Vital Signs Date Time Temp Pulse Resp B/P B/P Pulse O2 O2 Flow FiO2 Mean Ox Delivery Rate 11/18 1604 97.0 90 15 104/55 96 Room Air Room Air 11/18 1540 97.0 90 15 104/55 11/18 1539 97.0 90 15 104/55 96 Room Air Room Air 11/18 1200 97.6 86 20 96/60 11/18 0655 97.5 86 18 110/64 11/18 0500 97.5 86 18 110/64 11/18 0341 97.6 68 20 102/61 / 0200 97.6 68 20 102/61 11/18 0200 97.6 68 20 102/61 11/18 0140 97.6 68 20 102/61 98 Room Air 11/18 0000 97.6 68 20 102/61 11/18 0000 97.6 68 20 102/61 11/17 2213 97.7 85 18 117/54 98 Room Air 11/17 2140 97.7 84 18 117/54 98 Room Air I reviewed Intake & Output 11/18 1600 11/18 0811/18 0000 11/17 1600 11/17 0800 11/17 0000 Intake Total 600 1000 450 0 2200 Output Total 400 Balance 600 1000 450 0 1800 Intake, IV 600 2200 Intake, Oral 600 400 450 0 Number 4 1 Bowel Movements Output, Urine 400 Patient 220 lb Weight Weight Reported by Patient Measurement Method Physical Exam: Constitutional: pleasant, no acute distress, minimally conversant Eyes: sclera anicteric ENMT: ears and nose atraumatic, moist mucous membranes, poor dentition, no lip lesions Neck: Supple, trachea is midline, no cervical or supraclavicular adenopathy and no palpable thyromegaly Cardiovascular: S1, S2, no murmurs, no peripheral edema Respiratory: clear to auscultation with normal respiratory effort and no intercostal retractions GI: abdomen soft, nontender, but indicates that any discomfort she's been having lately is more in the left lower quadrant but not now, nondistended, no palpable hepatosplenomegaly Extremities / lymphatics: symmetrically warm, free range of motion no peripheral edema, no cervical, supraclavicular, axillary, or inguinal adenopathy Musculoskeletal: Did not evaluate gait and station, no digital cyanosis, good muscle strength and tone no atrophy, motor grossly 5 out of 5 throughout Skin: no jaundice, no rashes warm, nondiaphoretic, no areas of erythema or induration Psychiatric: Not able to really assess as she is not really conversant a little confused and forgetful mood and affect are appropriate. Last 24 Hours of Labs: Laboratory Tests Labs reviewed, when she first arrived to the ER on the third her bilirubin was elevated at 2.2, and transaminases were elevated not so much the ALT but these have been elevated and numerous previous labs over the years, consistently, white blood cell count has been normal hemoglobin low but stable I reviewed CT scans on PACS myself including one from 03/05/2014 September [id number]/2015 and 08/30/2017. All of them show a little lisa of calcium in the wall of the fundus of the gallbladder relatively unchanged over the years. There are no secondary inflammatory changes around the gallbladder on the most recent CT scan I also reviewed the ultrasound from yesterday on PACS myself there were no secondary signs of inflammation of the gallbladder no gallstones. Assessment/Plan Assessment/Plan This calcification in the wall of the gallbladder is small and stable for many years is not symptomatic it's not her acute issue no surgery indicated. She primarily has sequelae of alcoholic pancreatitis and hepatitis, she has no gallstones the pattern is not typical of gallstone pancreatitis either, this also has been addressed before. Please call with any questions. Problem List: 1. Pancreatitis, acute 2. Calcification of gallbladder 3. Hypokalemia 4. Alcohol withdrawal 5. Abdominal pain 6. Chronic back pain 7. Alcohol intoxication Consult Acknowledgment - Thank you for your consult request.
--- NOTE | 2017-11-19 19:50 | RADIOLOGY REPORT ---
EXAMINATION: XR PORTABLE CHEST CLINICAL INFORMATION: Rule out pneumonia. Fevers COMPARISON: 01/19/2016 TECHNIQUE: Portable frontal view of the chest was obtained. FINDINGS: Lung volumes remain low. Persistent asymmetric elevation of the right hemidiaphragm. No focal consolidation or mass. No pleural effusion or pneumothorax. Normal pulmonary vascularity. Cardiomediastinal silhouette unchanged. Regional skeleton intact. IMPRESSION: Low lung volumes. No acute pulmonary disease.
[2017-11-19 22:19] VITALS: BP 102/62
[2017-11-20] VITALS: BP 106/64
[2017-11-20 01:40] VITALS: BP 106/64
[2017-11-20 06:32] VITALS: BP 106/66
--- NOTE | 2017-11-20 09:33 | PN- Housestaff ---
Evens LIU,[facility] 11/20/17 0932: Subjective Follow-up For: Alcoholic pancreatitis Alcohol detox Tele-Events Since Last Visit: N/A Subjective: MAXIMUM TEMPERATURE 98.6, saturating upper 90s on room air, complaining of polyuria and sensation of incomplete emptying. No acute overnight events were reported. Currently denies any active abdominal pain. She scoring low on CIWA. Review of Systems Constitutional: Denies: chills, diaphoresis, fever. EENTM: Denies: visual changes, hearing changes. Cardiovascular: Denies: chest pain, orthopena, palpitations, peripheral edema, syncope. Respiratory: Denies: cough, short of breath, wheezing. Gastrointestinal: Denies: diarrhea, distention, nausea, vomiting. Genitourinary: Reports: frequency, urgency. Skin: Denies: jaundice. Objective Last 24 Hrs of Vital Signs/I&O Vital Signs Date Time Temp Pulse Resp B/P B/P Pulse O2 O2 Flow FiO2 Mean Ox Delivery Rate 11/20 1504 98.6 76 18 100/60 97 Room Air 11/20 1300 98.0 84 20 100/60 96 Room Air 11/20 0632 97.2 91 20 106/66 96 Room Air 11/20 0140 98.1 92 20 106/64 94 Room Air 11/20 0000 98.1 92 20 106/64 11/19 2219 97.9 88 20 102/62 93 11/19 1839 98.6 Intake & Output 11/20 1600 11/20 0800 11/20 0000 Intake Total 530 480 360 Output Total 1000 Balance -470 480 360 Intake, IV 30 Intake, Oral 500 480 360 Number 1 1 Bowel Movements Output, Urine 1000 Physical Exam General Appearance: Alert, Oriented X3, Cooperative, No Acute Distress Skin: No Rashes HEENT: Atraumatic, PERRLA, EOMI, Mucous Membr. moist/pink Neck: No JVD Cardiovascular: Regular Rate, Normal S1, Normal S2, No Murmurs Lungs: Clear to Auscultation Abdomen: Normal Bowel Sounds, Soft, No Hepatospenomegaly, mild epigastric pain Neurological: anxious Extremities: No Clubbing, No Cyanosis, No Edema Current Medications: Current Medications Sig/Liane Start time Last Medication Dose Route Stop Time Status Admin Aspirin 81 MG DAILY 11/17 1000 AC 11/20 PO 0911 Folic Acid 1 MG DAILY 11/17 1000 AC 11/20 PO 0911 Gabapentin 600 MG QAM 11/17 1000 AC 11/20 PO 0910 Gabapentin 400 MG AT BEDTIME 11/16 2200 AC 11/19 PO 2106 Heparin Sodium 5,000 UNIT Q8 11/16 2200 AC 11/20 (Porcine) SC 1353 Ibuprofen 400 MG TID PRN 11/17 1415 AC 11/17 PO 1426 Lidocaine 1 PAT DAILY 11/17 1000 AC 11/20 EXT 0911 Lorazepam 1 MG Q6 11/20 1800 AC PO Lorazepam 1.5 MG Q8 11/20 1400 DC 11/20 PO 1352 Lorazepam 1.5 MG Q6 11/19 1200 DC 11/20 PO 0518 Lorazepam 0 Q1P PRN 11/16 2045 AC 11/18 IV 1620 Magnesium Oxide 400 MG BID 11/19 1815 DC 11/19 PO 11/19 2201 2244 Magnesium Oxide 400 MG BID 11/18 1000 AC 11/20 PO 0911 Magnesium Sulfate 1 GM Q2H 11/20 1415 AC Dextrose/Water 100 ML IV 11/20 1814 Multivitamins 1 TAB DAILY 11/16 2125 AC 11/20 PO 0910 Nicotine 7 MG DAILY 11/17 1000 AC 11/20 TOP 0911 Olanzapine 5 MG AT BEDTIME 11/16 2200 AC 11/19 PO 2244 Omeprazole 40 MG DAILY AC 11/17 0700 AC 11/20 PO 0517 Ondansetron HCl 4 MG Q6P PRN 11/16 2130 AC 11/20 IV 1125 Phosphate 250 MG BID 11/20 1407 AC PO Phosphate 250 MG ONCE ONE 11/19 1830 DC 11/19 PO 11/19 1831 2106 Thiamine HCl 50 MG DAILY 11/17 1000 AC 11/20 PO 0910 Last 24 Hrs of Lab/Nicholas Results Last 24 Hrs of Labs/Mics: Laboratory Tests 11/20/17 0845: Anion Gap 10, Estimated GFR > 60, BUN/Creatinine Ratio 12.0, Phosphorus 0.8 *L, Magnesium 1.4 L, CBC w Diff NO MAN DIFF REQ, RBC 3.25 L, MCV 94.0, MCH 32.2 H , RDW 15.3 H, MPV 8.6, Gran % 45.3, Lymphocytes % 39.8, Monocytes % 13.0 H, Eosinophils % 1.2, Basophils % 0.7, Absolute Granulocytes 3.4, Absolute Lymphocytes 2.9, Absolute Monocytes 1.0 H, Absolute Eosinophils 0.1, Absolute Basophils 0.1, PUBS MCHC 34.2 Microbiology 11/19 2129 BLOOD: Blood Culture - RES 11/19 2114 BLOOD: Blood Culture - RES 11/19 2109 URINE ROUT: Urine Culture - RES Assessment/Plan Assessment: Patient is a 57-year-old female with past medical history significant for alcohol abuse, pancreatitis, hyperlipidemia, with previous admission for alcohol detox presents this admission with findings consistent for pancreatitis 2/2 to alcohol abuse and was found to have alcohol withdrawal symptom #Pancreatitis secondary to alcohol use * Patient is a regular diet now * We will continue Zofran as needed for nausea * We will control pain as needed #Transaminitis Most likely secondary to alcoholic hepatitis RUQ Hepatic steatosis * Monitor LFT's #Hypokalemia resolved #Hypomagnesemia and hypophosphatemia * We'll replete as necessary * We will continue oral magnesium * We will start oral phosphate powder 250 milligrams twice daily #Alcohol dependence CIWA running low * We will decrease Ativan to 1 mg every 6 and continue ativan per CIWA * thiamine, folate and a multivitamin * We will follow Social work consult #GERD continue on PPI #Peripheral neuropathy continue on gabapentin 600 mg in morning and 4 mg at bedtime #Chronic back pain secondary to disc herniation Continue Lidoderm patch #Regular diet #DVT prophylaxis Heparin 5000minutes 3 times a day subcutaneous #CODE STATUS Full code Problem List: 1. Alcohol withdrawal 2. Pancreatitis, acute Pain Ratin Pain Location: Epigastric pain Pain Goal: Remain pain free Pain Plan: See assessment and plan Tomorrow's Labs & Rationales: BEP, phosphorus, magnesium Storm LIU,Nidia 11/20/17 1221: Attending MD Review Statement Attending Statement Attending MD Statement: examined this patient, discuss w/resident/PA/MULTIMEDIA COORDINATOR, agreed w/resident/PA/MULTIMEDIA COORDINATOR, reviewed EMR data (avail), discussed with nursing, discussed with case mgmt, amended to note Attending Assessment/Plan: Patient seen and examined. Resting comfortably not in any acute distress. No issues overnight reported by nursing staff. Her CIWA score continues to improve and she did not require any when necessary dose of Ativan yesterday. This morning she was drowsy but easily arousable. Denied abdominal pain. On examination abdomen is soft and nontender with normal bowel sounds. Hemoglobin level is stable and electrolytes are within normal limits other than her phosphorus and magnesium which continue to be low. Problems: 1. Acute on chronic pancreatitis; alcohol-induced 2. Abnormal EKG; nonspecific 3. Chronic anemia 4. Hypo-magnesium and hypophosphatemia 5. Polysubstance abuse 6. Calcified gallbladder. 7. Alcohol withdrawal syndrome. 8. Fever Recommendations: -Decrease Ativan to 1 mg orally every 6 hours. -Mobilize patient as tolerated. -Continue diet as tolerated. -Supplement magnesium and phosphorus level. Begin patient on Neutra-Phos 250 mg orally twice daily. Continue magnesium oxide 400 mg orally twice daily. -She has had no further episodes of fever. Ibrahim cultures negative. No infectious etiology noted on x-ray. Continue to hold off antibiotic therapy.
[2017-11-20 09:53] LABS: ABSOLUTE BASOPHIL COUNT 0.1 /CUMM (0.0-0.2); ABSOLUTE EOSINOPHIL COUNT 0.1 /CUMM (0.0-0.7); ABSOLUTE GRANULOCYTE CT 3.4 /CUMM (1.4-6.5); ABSOLUTE LYMPH COUNT 2.9 /CUMM (1.2-3.4); BASOPHIL % 0.7 % (0.0-2.0); EOSINOPHIL % 1.2 % (0-5); GRANULOCYTE % 45.3 % (42.2-75.2); HEMATOCRIT 30.6 % (37-47); MEAN CORPUSCULAR HGB 32.2 PG (27.0-31.0); MEAN CORPUSCULAR HGB CONC 34.2 G/DL (33.0-37.0); MEAN PLATELET VOLUME 8.6 FL (7.4-10.4); PLATELET COUNT 200 /CUMM (130-400); RBC DISTRIBUTION WIDTH 15.3 % (11.5-14.5); RED BLOOD CELL CT 3.25 /CUMM (4.20-5.40)
[2017-11-20 09:56] LABS: WHITE BLOOD CELL COUNT 7.4 /CUMM (4.8-10.8)
[2017-11-20 13:00] VITALS: BP 100/60
[2017-11-20 15:04] VITALS: BP 100/60
[2017-11-20 22:15] VITALS: BP 118/72
[2017-11-21] VITALS: BP 136/70
[2017-11-21 06:00] VITALS: BP 114/70
--- NOTE | 2017-11-21 08:17 | PN- Housestaff ---
Rehana LIU,[facility] 11/21/17 0817: Subjective Follow-up For: Alcoholic pancreatitis Alcohol detox Subjective: Patient is seen and examined at bedside, no acute overnight events, still complains of abdominal pain, anxiety, shakes. Denies vomiting, diarrhea, fever, chills or urinary symptoms. Maximum CIWA in The past 24 hours was 7, required 1 mg of IV Ativan overnight Review of Systems Constitutional: Denies: no symptoms. Cardiovascular: Denies: no symptoms. Respiratory: Denies: no symptoms. Gastrointestinal: Reports: see HPI. Genitourinary: Denies: no symptoms. Skin: Denies: no symptoms. Neurological/Psychological: Reports: see HPI. Objective Last 24 Hrs of Vital Signs/I&O Vital Signs Date Time Temp Pulse Resp B/P B/P Pulse O2 O2 Flow FiO2 Mean Ox Delivery Rate 11/21 06 98.1 90 20 114/70 94 Room Air 11/20 2215 98.5 94 20 118/72 95 11/20 1504 98.6 76 18 100/60 97 Room Air Intake & Output 11/21 1600 11/21 0800 11/21 0000 Intake Total 620 480 620 Output Total Balance 620 480 620 Intake, IV 20 260 Intake, Oral 600 480 360 Number 1 Bowel Movements Patient 220 lb Weight Physical Exam General Appearance: Alert, Oriented X3, Cooperative, No Acute Distress HEENT: Atraumatic, PERRLA, EOMI, Mucous Membr. moist/pink Neck: Supple, No JVD, No thryomegaly Cardiovascular: Regular Rate, Normal S1, Normal S2, No Murmurs Lungs: Clear to Auscultation, Normal Air Movement Abdomen: Normal Bowel Sounds, Soft, No Tenderness Extremities: No Clubbing, No Cyanosis, No Edema, Normal Pulses Vascular: Normal Pulses, Pulses Symmetrical Sepsis Peripheral Pulse Location: Radial Assessment/Plan Assessment: Patient is a 57-year-old female with past medical history significant for alcohol abuse, pancreatitis, hyperlipidemia, with previous admission for alcohol detox presents this admission with findings consistent for pancreatitis 2/2 to alcohol abuse and was found to have alcohol withdrawal symptom #Pancreatitis secondary to alcohol use * Patient is on a regular diet now * We will continue Zofran as needed for nausea * We will control pain as needed #Transaminitis Most likely secondary to alcoholic hepatitis RUQ Hepatic steatosis * Monitor LFT's #Hypokalemia resolved #Hypomagnesemia and hypophosphatemia * She was noticed to have severe hypomagnesemia and hypophosphatemia * Magnesium and phosphorus has been appreciated today * We will continue oral magnesium * We will start oral phosphate powder 250 milligrams twice daily * Continue to monitor magnesium and phosphorus #Alcohol dependence CIWA running low * Maximum CIWA in the past 24 hours was 7 * Tomorrow We will decrease Ativan to 1 mg every 12 and continue ativan per CIWA * thiamine, folate and a multivitamin * We will follow Social work consult #GERD continue on PPI #Peripheral neuropathy continue on gabapentin 600 mg in morning and 4 mg at bedtime #Chronic back pain secondary to disc herniation Continue Lidoderm patch #Regular diet #DVT prophylaxis Heparin 5000minutes 3 times a day subcutaneous #CODE STATUS Full code Problem List: 1. Hypokalemia 2. Pancreatitis, acute 3. Calcification of gallbladder 4. Alcohol withdrawal Pain Ratin Pain Location: Abdomen Pain Goal: Pain 4 or less Pain Plan: per pathway Tomorrow's Labs & Rationales: cbc bep Mg Phosph DVT/Prophylaxis: mechanical, pharmacological Akiko Randall MD 11/21/17 1605: Attending MD Review Statement Attending Statement Attending MD Statement: examined this patient, discuss w/resident/PA/DIE ENGRAVER, agreed w/resident/PA/DIE ENGRAVER, reviewed EMR data (avail) Attending Assessment/Plan: Walked well with PT today. Will continue Ativan taper, replete electrolytes, continue current management.
[2017-11-21 14:23] VITALS: BP 120/60
[2017-11-21 19:00] VITALS: BP 110/60
[2017-11-21 20:00] VITALS: BP 136/70
[2017-11-21 22:36] VITALS: BP 136/70
[2017-11-22] VITALS (7 sets, daily range): BP systolic 112–128; BP diastolic 60–84
--- NOTE | 2017-11-22 07:12 | PN- Housestaff ---
Rehana LIU,Selin 11/22/17 0711: Subjective Follow-up For: Alcoholic pancreatitis Alcohol detox Subjective: Patient is seen and examined at bedside, no acute overnight events, still complains of abdominal pain /, anxiety, shakes. Denies vomiting, diarrhea, fever, chills or urinary symptoms. Maximum CIWA in The past 24 hours was 4 , didn't require IV Ativan overnight , her Ativan has been tappered to 1 mg Q 12 Review of Systems Constitutional: Reports: chills, malaise, weakness. Cardiovascular: Denies: chest pain, edema, orthopena, palpitations. Respiratory: Denies: cough, hemoptysis, short of breath, sputum production. Gastrointestinal: Reports: abdominal pain, distention. Denies: constipation, diarrhea, nausea, bloody stool. Genitourinary: Denies: no symptoms. Musculoskeletal: Denies: no symptoms. Objective Last 24 Hrs of Vital Signs/I&O Vital Signs Date Time Temp Pulse Resp B/P B/P Pulse O2 O2 Flow FiO2 Mean Ox Delivery Rate 11/22 0710 98.1 70 20 122/80 95 Room Air 11/22 0400 97.9 80 20 112/84 11/22 0300 97.9 105 20 112/84 95 Room Air 11/21 2236 99.1 90 20 136/70 95 Room Air 11/21 2000 99.1 90 20 136/70 11/21 1900 98.3 94 20 110/60 96 Room Air 11/21 1423 98.8 85 20 120/60 97 Room Air Intake & Output 11/22 1600 11/22 0800 11/22 0000 Intake Total 350 500 Output Total Balance 350 500 Intake, Oral 350 500 Physical Exam General Appearance: Alert, Oriented X3, Cooperative, No Acute Distress Skin: No Rashes, No Breakdown, No Significant Lesion HEENT: Atraumatic, PERRLA, EOMI, Mucous Membr. moist/pink Neck: Supple, No JVD, No thryomegaly Cardiovascular: Normal S1, Normal S2, No Murmurs Lungs: Clear to Auscultation, Normal Air Movement Abdomen: Normal Bowel Sounds, Soft, tenderness in the left lower quadrant, and mid abdomen Neurological: Normal Speech, Strength at 5/5 X4 Ext, Normal Tone Extremities: No Clubbing, No Cyanosis, No Edema Vascular: Normal Pulses Assessment/Plan Assessment: Patient is a 57-year-old female with past medical history significant for alcohol abuse, pancreatitis, hyperlipidemia, with previous admission for alcohol detox presents this admission with findings consistent for pancreatitis 2/2 to alcohol abuse and was found to have alcohol withdrawal symptom #Pancreatitis secondary to alcohol use * Patient is on a regular diet now * We will continue Zofran as needed for nausea * We will control pain as needed #Transaminitis Most likely secondary to alcoholic hepatitis RUQ Hepatic steatosis * Monitor LFT's #Hypokalemia resolved #Hypomagnesemia and hypophosphatemia * She was noticed to have severe hypomagnesemia and hypophosphatemia * Magnesium and phosphorus has been appreciated today * We will continue oral magnesium * We will start oral phosphate powder 250 milligrams twice daily * Continue to monitor magnesium and phosphorus #Alcohol dependence CIWA running low * Maximum CIWA in the past 24 hours was 7 * Tomorrow We will decrease Ativan to 1 mg every 12 and continue ativan per CIWA * thiamine, folate and a multivitamin * We will follow Social work consult #GERD continue on PPI #Peripheral neuropathy continue on gabapentin 600 mg in morning and 4 mg at bedtime #Chronic back pain secondary to disc herniation Continue Lidoderm patch #Regular diet #DVT prophylaxis Heparin 5000minutes 3 times a day subcutaneous #CODE STATUS Full code Problem List: 1. Pancreatitis, acute 2. Calcification of gallbladder 3. Alcohol withdrawal 4. Abdominal pain Pain Ratin Pain Location: LLQ Pain Goal: Pain 4 or less Pain Plan: per pathway Tomorrow's Labs & Rationales: N/A DVT/Prophylaxis: mechanical, pharmacological Akiko Randall MD 11/22/17 1255: Attending MD Review Statement Attending Statement Attending MD Statement: examined this patient, discuss w/resident/PA/FINANCE OFFICER, agreed w/resident/PA/FINANCE OFFICER, reviewed EMR data (avail) Attending Assessment/Plan: 57F PMH EtOH abuse admitted for alcoholic pancreatitis and alcohol abuse. Pancreatitis symptoms have resolved and patient is eating and drinking well. She had metabolic derangement which has also resolved since PO intake has increased. Withdrawal delirium was present but this is improving as well. CIWA controlled overnight. 1. Alcoholic pancreatitis 2. Alcohol withdrawal with delirium 3. Hypomagnesemia 4. Hypophosphatemia 5. Hypokalemia Plan - Continue on general medicine - Continue Ativan taper - Replete electrolytes as necessary - Will speak with case management and social work for discharge plan - DVT PPx - Anticipated discharge later today or tomorrow
[2017-11-22 09:53] LABS: ABSOLUTE BASOPHIL COUNT 0 /CUMM (0.0-0.2); ABSOLUTE EOSINOPHIL COUNT 0.1 /CUMM (0.0-0.7); ABSOLUTE GRANULOCYTE CT 2.6 /CUMM (1.4-6.5); ABSOLUTE LYMPH COUNT 2.5 /CUMM (1.2-3.4); ABSOLUTE MONOCYTE COUNT 0.7 /CUMM (0.10-0.60); BASOPHIL % 0.4 % (0.0-2.0); EOSINOPHIL % 1.7 % (0-5); GRANULOCYTE % 43.3 % (42.2-75.2); HEMATOCRIT 31.3 % (37-47); MEAN CORPUSCULAR HGB 31.9 PG (27.0-31.0); MEAN CORPUSCULAR HGB CONC 33.6 G/DL (33.0-37.0); MEAN PLATELET VOLUME 8.9 FL (7.4-10.4); PLATELET COUNT 197 /CUMM (130-400); WHITE BLOOD CELL COUNT 5.9 /CUMM (4.8-10.8)
[2017-11-23] VITALS: BP 112/60
[2017-11-23 06:28] VITALS: BP 108/64
--- NOTE | 2017-11-23 07:42 | PN- Housestaff ---
Rehana LIU,Selin 11/23/17 0742: Subjective Follow-up For: Alcoholic pancreatitis Alcohol detox Subjective: Patient is seen and examined at bedside, no acute overnight events, still complains of abdominal pain /10, anxiety, shakes. Denies vomiting, diarrhea, fever, chills or urinary symptoms. Maximum CIWA in The past 24 hours was 5 , creatinine has been discontinued Review of Systems Constitutional: Denies: no symptoms. Cardiovascular: Denies: no symptoms. Respiratory: Denies: no symptoms. Gastrointestinal: Reports: abdominal pain, nausea. Genitourinary: Denies: no symptoms. Musculoskeletal: Denies: no symptoms. Objective Last 24 Hrs of Vital Signs/I&O Vital Signs Date Time Temp Pulse Resp B/P B/P Pulse O2 O2 Flow FiO2 Mean Ox Delivery Rate 11/23 0628 97.7 88 20 108/64 94 Room Air 11/23 0000 94.0 95 22 112/60 11/22 2203 99.5 95 22 112/60 94 Room Air 11/22 1443 98.0 80 18 128/76 100 Room Air 11/22 1401 98.1 84 18 118/62 97 Room Air Intake & Output 11/23 1600 11/23 0800 11/23 0000 Intake Total 200 120 Output Total Balance 200 120 Intake, Oral 200 120 Number 1 Bowel Movements Physical Exam General Appearance: Alert, Oriented X3, Cooperative, No Acute Distress HEENT: Atraumatic, PERRLA, EOMI, Mucous Membr. moist/pink Neck: Supple, No JVD Cardiovascular: Normal S1, Normal S2, No Murmurs Lungs: Clear to Auscultation, Normal Air Movement Abdomen: Normal Bowel Sounds, Soft, No Tenderness Neurological: Normal Speech, Strength at 5/5 X4 Ext, Normal Tone Extremities: No Clubbing, No Cyanosis, No Edema Vascular: Normal Pulses, Pulses Symmetrical Assessment/Plan Assessment: Patient is a 57-year-old female with past medical history significant for alcohol abuse, pancreatitis, hyperlipidemia, with previous admission for alcohol detox presents this admission with findings consistent for pancreatitis 2/2 to alcohol abuse and was found to have alcohol withdrawal symptom #Pancreatitis secondary to alcohol use * Patient is on a regular diet now * We will continue Zofran as needed for nausea * We will control pain as needed #Transaminitis Most likely secondary to alcoholic hepatitis RUQ Hepatic steatosis * Monitor LFT's #Hypokalemia resolved #Hypomagnesemia and hypophosphatemia Resolved * We will continue oral magnesium * We will start oral phosphate powder 250 milligrams twice daily #Alcohol dependence CIWA running low * Maximum CIWA in the past 24 hours was 5 * DC Ativan * thiamine, folate and a multivitamin * We will follow Social work consult #GERD continue on PPI #Peripheral neuropathy continue on gabapentin 600 mg in morning and 4 mg at bedtime #Chronic back pain secondary to disc herniation Continue Lidoderm patch #Regular diet #DVT prophylaxis Heparin 5000minutes 3 times a day subcutaneous #CODE STATUS Full code Problem List: 1. Pancreatitis, acute 2. Calcification of gallbladder 3. Alcohol withdrawal Pain Ratin Pain Location: left upper quadrant, left lower quadrant Pain Goal: Pain 4 or less Pain Plan: Pain pathway Tomorrow's Labs & Rationales: cbc bep DVT/Prophylaxis: mechanical, pharmacological Akiko Randall MD 11/23/17 1104: Attending MD Review Statement Attending Statement Attending MD Statement: examined this patient, discuss w/resident/PA/LUMBER TYING MACHINE OPERATOR, agreed w/resident/PA/LUMBER TYING MACHINE OPERATOR, reviewed EMR data (avail) Attending Assessment/Plan: 57F PMH EtOH abuse admitted for alcoholic pancreatitis and alcohol abuse. Pancreatitis symptoms have resolved and patient is eating and drinking well. She had metabolic derangement which has also resolved since PO intake has increased. Withdrawal delirium was present but this is improving as well. CIWA controlled overnight. 1. Alcoholic pancreatitis 2. Alcohol withdrawal with delirium 3. Hypomagnesemia 4. Hypophosphatemia 5. Hypokalemia Plan - Stable for discharge - Continue Ativan taper, completed today - Replete electrolytes as necessary - Will speak with case management and social work for discharge plan
--- NOTE | 2017-11-23 13:46 | Discharge Summary ---
Visit Information Visit Dates Admission Date: 11/16/17 Discharge Date: 11/24/17 Hospital Course Course Attending Physician: Akiko Randall MD Primary Care Physician: MD [place], [place] [facility] Course: 57-year-old female with a past medical history of chronic alcohol abuse, hypertension, fatty liver, pancreatitis, ovarian cancer, questionable breast cancer AV malformations requiring craniotomy, disc herniation, who presented to the ED with chief complaints of nausea, vomiting that has been worsening over the past 5 days but apparently started about a month ago after Thanksgiving. Labs pertinent for normal white blood cell count 5900, H&H of 14.4/41.1, platelet count of 1 44,000. Serum chemistries pertinent for hypertension with a sodium 134, potassium 2.8, bicarbonate of 23, anion gap elevated to 24. BUN 12 the creatinine 0.5 and a serum glucose of 114. Serum mag 1.3, total bili of 2.2 with an AST/ALT of 179/61, alkaline phosphatase of 219, serum lipase of 2482. Folate was 3.1 and B12 239. Serum alcohol 73.0 EKG revealed normal sinus rhythm with a heart rate of 90, normal axis, ? T-wave inversion in V2. Echocardiogram done in as 15 for TIA revealed stage I diastolic dysfunction with an EF of greater than 65, no aortic valve stenosis or regurgitation. Abdominal ultrasound: Hepatic steatosis. Redemonstration of the small calcification at the gallbladder wall. Otherwise unremarkable appearance. In the ER, her CIWA score was 4 she received thousand mL bolus of normal saline, 40 mEq of K-Parris orally, 10 mCi: Supple ID potassium chloride, Reglan 10 mg IV 1 , Zofran 4 mg IV 1, and mag sulfate as well as lactated Ringer's. #Pancreatitis Most likely alcoholic vs gallstone given she's been drinking a liter a day of vodka. Initially the patient was admitted to telemetry floor, she was kept nothing by mouth and hydrated with IV fluids, Zofran when necessary for nausea , when the patient improved she was transferred to general medicine floor, with pain control #Transaminitis Most likely secondary to alcoholic hepatitis #Hypokalemia, Hypomagnesemia and hypophosphatemia * The patient was noticed to have severe electrolyte deficiency, which was repleted subsequently had electrolytes were normal during her hospital stay #Alcohol dependence CIWA running low * Patient was treated with Ativan taper, thiamine, folate and multivitamin #Abnormal EKG; nonspecific, further follow-up as outpatient, patient might benefit from stress study as outpatient #Chronic anemia: H&H were stable For further follow-up as outpatient #Calcified gallbladder: Surgery consult recommended the patient to follow up as outpatient, there was no role for surgery as inpatient. #GERD Was kept on PPI #Peripheral neuropathy gabapentin 600 mg in morning and 4 mg at bedtime #Chronic back pain secondary to disc herniation Lidoderm patch #Regular diet #DVT prophylaxis Heparin 5000minutes 3 times a day subcutaneous #CODE STATUS Full code Allergies: Coded Allergies: Penicillins (Mild, RASH 01/14/16) Sulfa (Sulfonamide Antibiotics) (Mild, RASH 01/14/16) amoxicillin (Mild, RASH 01/14/16) latex (Mild, RASH 01/14/16) hydrocortisone (LOST LEFT EYE 06/30/17) Disposition Summary Disposition Principal Diagnosis: Acute on chronic pancreatitis; alcohol-induced Alcohol abuse Additional Diagnosis: - Abnormal EKG; nonspecific -Chronic anemia - Hypokalemia; resolved - Polysubstance abuse - Calcified gallbladder. Discharge Disposition: home health services Discharge Instructions General Discharge Information Code Status: Full Code Patient's Diet: Regular diet Patient's Activity: As tolerated Follow-Up Instructions/Appts: 1please follow-up with your PCP in 1 week of discharge 2please follow up with swimming pool plasterer helper for calcified gallbladder in 1 week of discharge 3please follow-up with your director of grants for abnormal EKG in 1 week of discharge 4please avoid drinking alcohol Medications at Discharge Discharge Medications: Stop taking the following medications: Atorvastatin Calcium (Atorvastatin Calcium) 20 MG TABLET ORAL DAILY Continue taking these medications: Aspirin (Children's Aspirin) 81 MG TAB.CHEW 1 Tablet ORAL DAILY Comments: Last Taken: 11/24/17 Time: 9:12 AM Thiamine HCl (Vitamin B-1) 50 MG TABLET 1 Tablet ORAL DAILY Comments: Last Taken: 11/24/17 Time: 9:11 AM Gabapentin (Neurontin) 300 MG CAPSULE 2 Capsule ORAL Every Morning Comments: Last Taken: 11/24/17 Time: 9:12 AM Lidocaine (Lidoderm) 5 % ADH..PATCH 1 Patch On the skin DAILY Instructions: may wear up to 12 hours Comments: Last Taken:11/24/17 Time:9:12 AM Multivitamin-Min/Iron/FA/Vit K (Multi-Day Plus Minerals Tablet) 18 MG IRON-400 MCG-25 MCG TABLET 1 Tablet ORAL DAILY Comments: Last Taken:11/24/17 Time:9:12 AM Folic Acid (Folic Acid) 1 MG TABLET 1 Tablet ORAL DAILY Comments: Last Taken: 11/24/27 Time: 9:12 AM Olanzapine (Olanzapine) 5 MG TABLET 1 Tablet ORAL AT BEDTIME Qty = 30 Instructions: . Comments: Last Taken: 11/24/17 Time: 8:38 PM Omeprazole (Omeprazole) 40 MG CAPSULE.DR 1 Capsule ORAL DAILY Qty = 30 Instructions: . Comments: Last Taken: 11/24/17 Time: 5 AM Gabapentin (Neurontin) 400 MG CAPSULE 1 Capsule ORAL AT BEDTIME Comments: Last Taken:11/23/17 Time:8:37 PM Start taking the following new medications: Gabapentin (Gabapentin) 300 MG CAPSULE 600 Milligram ORAL Every Morning Qty = 30 No Refills Instructions: . Comments: Last Taken:11/24/17 Time:9:12 AM Gabapentin (Gabapentin) 400 MG CAPSULE 400 Milligram ORAL AT BEDTIME Qty = 30 No Refills Instructions: . Comments: Last Taken:11/23/17 Time:8:40 PM Ondansetron HCl (Zofran) 4 MG TABLET 1 Tablet ORAL Every 6-8 Hours as Needed as needed for nausea Qty = 5 No Refills Copies To: Lincoln LIU,[place]
[2017-11-23 14:01] VITALS: BP 112/78
[2017-11-23 21:25] VITALS: BP 110/70
[2017-11-24] VITALS: BP 110/70
[2017-11-24 06:51] VITALS: BP 100/60
--- NOTE | 2017-11-24 07:16 | PN- Housestaff ---
Rehana LIU,Selin 11/24/17 0716: Subjective Follow-up For: Alcoholic pancreatitis Alcohol detox Subjective: Patient is seen and examined at bedside, no acute overnight events, reports moderate improvement of her abdominal pain , denies anxiety, shakes. Denies vomiting, diarrhea, fever, chills or urinary symptoms. Maximum CIWA 0 , off Ativan Review of Systems Constitutional: Denies: no symptoms. Cardiovascular: Denies: no symptoms. Respiratory: Denies: no symptoms. Gastrointestinal: Denies: abdominal pain, bloating, constipation, diarrhea, distention. Genitourinary: Denies: no symptoms. Musculoskeletal: Denies: no symptoms. Skin: Denies: no symptoms. Objective Last 24 Hrs of Vital Signs/I&O Vital Signs Date Time Temp Pulse Resp B/P B/P Pulse O2 O2 Flow FiO2 Mean Ox Delivery Rate 11/24 0651 98.2 76 20 100/60 95 Room Air 11/24 0000 98.4 80 18 110/70 11/23 2125 98.4 80 18 110/70 96 11/23 1401 8.5 82 18 112/78 95 Intake & Output 11/24 1600 11/24 0800 11/24 0000 Intake Total 480 150 Output Total Balance 480 150 Intake, IV 10 Intake, Oral 480 140 Physical Exam General Appearance: Alert, Oriented X3, Cooperative, No Acute Distress Skin: No Rashes, No Breakdown, No Significant Lesion HEENT: Atraumatic, PERRLA, EOMI, Mucous Membr. moist/pink Neck: Supple, No JVD Cardiovascular: Normal S1, Normal S2, No Murmurs Lungs: Clear to Auscultation Abdomen: Normal Bowel Sounds, Soft, No Tenderness Neurological: Normal Speech, Strength at 5/5 X4 Ext, Normal Tone Extremities: No Clubbing, No Cyanosis, No Edema Vascular: Normal Pulses, Pulses Symmetrical Assessment/Plan Assessment: Patient is a 57-year-old female with past medical history significant for alcohol abuse, pancreatitis, hyperlipidemia, with previous admission for alcohol detox presents this admission with findings consistent for pancreatitis 2/2 to alcohol abuse and was found to have alcohol withdrawal symptom #Pancreatitis secondary to alcohol use * Patient is on a regular diet now * We will continue Zofran as needed for nausea * We will control pain as needed #Transaminitis Most likely secondary to alcoholic hepatitis RUQ Hepatic steatosis * Monitor LFT's #Hypokalemia resolved #Hypomagnesemia and hypophosphatemia Resolved * We will continue oral magnesium * We will start oral phosphate powder 250 milligrams twice daily #Alcohol dependence CIWA running low * Maximum CIWA in the past 24 hours was 0 * off Ativan * thiamine, folate and a multivitamin * We will follow Social work consult #GERD continue on PPI #Peripheral neuropathy continue on gabapentin 600 mg in morning and 4 mg at bedtime #Chronic back pain secondary to disc herniation Continue Lidoderm patch Patient is a stable to be discharged home today with home health services, for follow-up with her PCP outpatient #Regular diet #DVT prophylaxis Heparin 5000minutes 3 times a day subcutaneous #CODE STATUS Full code Problem List: 1. Hypokalemia 2. Pancreatitis, acute 3. Alcohol withdrawal 4. Abdominal pain Pain Ratin Pain Location: LLQ Pain Goal: Pain 4 or less Pain Plan: pain pathway Tomorrow's Labs & Rationales: N/A DVT/Prophylaxis: mechanical, pharmacological Akiko Randall MD 11/24/17 1135: Attending MD Review Statement Attending Statement Attending MD Statement: examined this patient, discuss w/resident/PA/UNEMPLOYMENT EXAMINER, agreed w/resident/PA/UNEMPLOYMENT EXAMINER, reviewed EMR data (avail) Attending Assessment/Plan: 57F PMH EtOH abuse admitted for alcoholic pancreatitis and alcohol abuse. Pancreatitis symptoms have resolved and patient is eating and drinking well. She had metabolic derangement which has also resolved since PO intake has increased. Withdrawal delirium was present but this is improving as well. CIWA controlled overnight. 1. Alcoholic pancreatitis 2. Alcohol withdrawal with delirium 3. Hypomagnesemia 4. Hypophosphatemia 5. Hypokalemia Plan - Stable for discharge - Continue home medications
[2017-11-24 09:25] LABS: ABSOLUTE BASOPHIL COUNT 0.1 /CUMM (0.0-0.2); ABSOLUTE EOSINOPHIL COUNT 0.1 /CUMM (0.0-0.7); ABSOLUTE LYMPH COUNT 2.5 /CUMM (1.2-3.4); ABSOLUTE MONOCYTE COUNT 0.6 /CUMM (0.10-0.60); BASOPHIL % 1.3 % (0.0-2.0); EOSINOPHIL % 1.6 % (0-5); GRANULOCYTE % 55.1 % (42.2-75.2); HEMATOCRIT 31.8 % (37-47); MEAN CORPUSCULAR HGB 31.4 PG (27.0-31.0); MEAN CORPUSCULAR HGB CONC 33.3 G/DL (33.0-37.0); MEAN CORPUSCULAR VOLUME 94.4 FL (81.0-99.0); MEAN PLATELET VOLUME 9.7 FL (7.4-10.4); PLATELET COUNT 230 /CUMM (130-400); RBC DISTRIBUTION WIDTH 16.5 % (11.5-14.5); RED BLOOD CELL CT 3.37 /CUMM (4.20-5.40); WHITE BLOOD CELL COUNT 7.4 /CUMM (4.8-10.8)
[2017-11-24 11:37] VITALS: BP 100/64
[2017-11-24] MEDS ORDERED: ZOFRAN4 M2 PO (13:20)
[2017-11-24] MEDS ORDERED: GABAPENTIN400 M2 PO (13:21)
[2017-11-24] MEDS ORDERED: GABAPENTIN300 M2 PO (13:21)
[2017-11-24 14:12] VITALS: BP 112/68
== END 2017-11-24 20:50 | disposition home health service (06) | DRG 282 ==
LOC: ERH 14:47 → 2NA 18:02 → ERHI 18:02 → CANRESERV 11-18 14:30 → ENRESERV 11-18 14:30 → CANRESERV 11-18 19:51 → ENRESERV 11-18 20:42 → ENTRNSPT 11-18 22:15 → 2NA 11-18 23:01 → CMPTRNSPT 11-18 23:03 → 2NA 11-21 09:25 → ENPENDDIS 11-24 13:33 → 2NA 11-24 20:50
PROVIDERS: Internal Medicine; Internal Medicine Adolescent Medicine; Internal Medicine Infectious Disease; Physician Assistant Medical; Student in an Organized Health Care Education/Training Program
DX: K85.20 Alcohol induced acute pancreatitis without necrosis or infection (principal); G25.81 Restless legs syndrome; E87.6 Hypokalemia; K27.9 Peptic ulcer, site unspecified, unspecified as acute or chronic, without hemorrhage or perforation; E78.5 Hyperlipidemia, unspecified; K21.9 Gastro-esophageal reflux disease without esophagitis; E83.42 Hypomagnesemia; K70.10 Alcoholic hepatitis without ascites; G62.9 Polyneuropathy, unspecified; D53.9 Nutritional anemia, unspecified; F14.99 Cocaine use, unspecified with unspecified cocaine-induced disorder; E83.39 Other disorders of phosphorus metabolism; M54.9 Dorsalgia, unspecified; F10.231 Alcohol dependence with withdrawal delirium; Y90.3 Blood alcohol level of 60-79 mg/100 ml; K82.8 Other specified diseases of gallbladder; E66.3 Overweight; Z68.25 Body mass index [BMI] 25.0-25.9, adult; E53.0 Riboflavin deficiency; Z88.0 Allergy status to penicillin; Z88.2 Allergy status to sulfonamides
CPT/HCPCS: 2NAP; 84133; 84300; ERO; 36415; 71045; 80307; 81003; 82436; 82570; 87040; 87086; 93005; 93010; 96361; 96365; 96366; 96375; 97110-GO; 97112-GO; 97116-GO; 97161-GP; 97530-GO; G0480; J1644; J2405; J2765; J3490; J7040; J7120